=== PATIENT | female | born 1985 | race Caucasian/White ===

== ENCOUNTER → 2018-07-31 | Outpatient (CLI) | payer OTHER | LOC: BMCIMAGING 13:56 | PROVIDERS: ATTEND Internal Medicine | DX: J98.09 Other diseases of bronchus, not elsewhere classified (principal); Z87.01 Personal history of pneumonia (recurrent) ==

== ENCOUNTER 2018-11-24 19:51 | Inpatient (IN) | payer SELFPAY ==
[2018-11-24] MEDS ORDERED: NS 1,000 ML IV ONE ×2 (20:17→22:01)
[2018-11-24] MEDS ORDERED: ONDANSETRON 4 MG/2 ML VIAL IVP ONE (20:49)
[2018-11-24] MEDS ORDERED: KETOROLAC 30 MG/1 ML SDV IVP ONE (20:49)
[2018-11-24] MEDS ORDERED: FAMOTIDINE 20 MG/NACL 50 ML IV ONE (20:49)
[2018-11-24 20:54] LABS: PLATELET COUNT 58 10^3/uL (150-400)
--- NOTE | 2018-11-24 20:54 | EDPHY ---
General Time Seen by Provider: 11/24/18 20:36 Narrative: CLINICAL IMPRESSION: Acute cystitis, hematuria, pancreatitis, dehydration, hypoxia ASSESSMENT/PLAN: 33-year-old alcoholic female presents to the emergency department for 1 week of nausea, vomiting, diarrhea, dysuria, generalized weakness, and shortness of breath. Patient was reportedly treated for pneumonia over a month ago with Levaquin, reports having at clear chest x-ray on follow-up but continues to have some shortness of breath. No complaints of chest pain. Patient is a daily drinker, last drink was at 12:30 p.m. Today. She smells of alcohol. She is also complaining of generalized lower abdominal cramping associated with dysuria and mild left flank pain and on lab evaluation appears to have acute cystitis with possible pyelonephritis. She also reports fevers at home. She does appear dehydrated but does not appear toxic. She arrives tachycardic but heart rate improved to 104 after 2 L of fluid. Urine culture ordered. Chest x- ray suggestive of possible bibasilar infiltrate versus atelectasis. Ceftriaxone initiated in the ED. Patient is requesting Librium, I have discussed with the hospitalist service who will put her on [facility] protocol. I discussed with Dr. Albertina Anton who will accept patient for admission. DIFFERENTIAL DX: Abdominal pain includes but not limited to urinary tract infection, pyelonephritis, infection, ectopic , salpingitis, TOA, ovarian torsion, ovarian cyst, endometriosis, uterine fibroids, acute appendicitis, pancreatitis, acute diverticulitis, small-bowel obstruction, constipation ED PROCEDURES: See lab and/or imaging results below ED COURSE: Patient updated on lab results, chest x-ray findings and urine studies. When patient's father steps other room she admits that she drinks daily, last drink was at 12:30 p.m. Today, admits that she has had a history of alcohol withdrawal seizures. Is requesting Librium. Denies chest pain but states that she has had some shortness of breath. Admits to burning with urination and radiating pain into the left flank. Also reports history of thrombocytopenia. I explained the patient that due to her hypoxia, chest x-ray findings, pancreatitis, dehydration, and UTI with probable early pyelonephritis I have recommended admission and she agrees to this. Discussed with Dr. Albertina Anton who will admit this patient to the floor. CHIEF COMPLAINT: Abdominal pain, nausea, vomiting, diarrhea, shortness of breath HPI: 33-year-old female presents to the emergency department with multiple complaints including generalized abdominal pain, nausea, vomiting, diarrhea x1 week. Patient also reports a month ago she was diagnosed with pneumonia, treated with Levaquin, reportedly had a repeat chest x-ray following treatment and was told it cleared. She has been taking albuterol as needed. She continues to have some shortness of breath. Original diagnosis was in [place] where she lives. Patient apparently told triage ED RN that she has a history of alcohol abuse, last drink was at 12:30 p.m. Today. Patient is not providing this history to me and I believe this is because her father is at bedside and she does not wish for him to know. She reports no blood in her stool. She does report some burning with urination and blood in her urine. She reported 1 fever yesterday. No travel outside the [place] Recently. Last antibiotic was over a month ago. No history of diverticulitis, Crohn's, ulcerative colitis. She reported to ED RN that she has withdrawal seizures and has done well with Librium in the past. She has not taken anything today for her symptoms. PAST MEDICAL HISTORY: History of alcohol abuse See nurse/triage notes for additional history if applicable Pertinent Past Surgical History: None reported Family History: Noncontributory Social History: Drinks alcohol, lives in [place] REVIEW OF SYSTEMS: All other systems negative Constitutional: Positive for isolated fever today, no chills, positive for appetite change.] Eyes: No discharge, vision change ENT: No sore throat, congestion, ear pain. Cardiovascular: No chest pain, no palpitations. Respiratory: No cough, positive for intermittent shortness of breath. Gastrointestinal: Positive for abdominal pain, nausea, vomiting, diarrhea.] Genitourinary: Positive for hematuria, positive for dysuria, denies flank pain , pelvic pain Musculoskeletal: No back pain, joint swelling, joint pain, myalgias. Skin: No rashes, color change. Neurological: No headache, dizziness, weakness. PHYSICAL EXAM: General Appearance: Alert, oriented, appropriate, cooperative, NAD, well hydrated, non-toxic appearing, tachycardic, smells of alcohol, no hypoxia. HEENT:Oropharynx clear is no erythema or exudates, no tonsillar hypertrophy or asymmetry. Dentition without abnormality.] Eyes: PERRLA, no acute vision change, nystagmus, swelling, discharge, pain or photosensitivity. Conjunctiva pink, no pallor or injection Neck: Supple, nontender, no lymphadenopathy, no midline pain, FROM, no meningismus. Respiratory: There are no retractions, lungs are clear to auscultation. Cardiac: Regular rate and rhythm, no murmurs or gallops. Gastrointestinal: Abdomen is soft, generally tender throughout more so to left lower quadrant, bowel sounds normal, no masses/hernia, no rigidity, guarding or focal peritoneal findings. Neurological: [ Alert and oriented x 3 Skin: Warm, dry, no rashes, no nodules on palpation. Musculoskeletal: Extremities are symmetrical, full range of motion, no tenderness, deformity, swelling, or erythema. Psychiatric: Patient is oriented X 3, there is no agitation. MEDICAL DECISION MAKING: Patient was seen independently. Secondary supervising physician at time of evaluation was Dr. Pelletier . Diagnosis: Urinary tract infection, possible early pyelonephritis, pancreatitis , dehydration, hypoxia. New, requires workup Summary: See Assessment and Plan for summary of ED visit Clinical lab tests: ordered / reviewed. Independent visualization of images, tracing, or specimens: Yes / No. Decision to obtain medical records or history from someone other than the patient: No Review / Summarize previous medical records: No Discussed patient with another provider: Dr. Pelletier, Dr. Antonio Patient Progress: Stable for admission. - Diagnostics Imaging Results: Imaging Impressions Chest X-Ray 11/24/18 20:50 Impression: Small bilateral pleural effusions with indistinct basilar opacities that could be related to atelectasis, aspiration, and/or pneumonia. - History Smoking Status: Current some day smoker - Objective Vital Signs: Initial Vital Signs Temperature (C) 36.6 C 11/24/18 19:53 Heart Rate 120 H 11/24/18 19:53 Respiratory Rate 18 11/24/18 19:53 Blood Pressure 121/81 H 11/24/18 19:53 O2 Sat (%) 92 11/24/18 19:53 O2 Delivery Mode Room Air Allergies/Adverse Reactions: No Known Allergies Allergy (Unverified 11/24/18 19:58) Laboratory Results: Laboratory Results 11/24/18 20:14 11/24/18 20:14 11/24/18 11/24/18 11/24/18 21:43 21:43 20:14 WBC RBC Hgb Hct MCV MCH MCHC RDW Plt Count MPV Neut % (Auto) Lymph % (Auto) [place] % (Auto) Eos % (Auto) Baso % (Auto) Nucleat RBC Rel Count Absolute Neuts (auto) Absolute Lymphs (auto) Absolute Monos (auto) Absolute Eos (auto) Absolute Basos (auto) Absolute Nucleated RBC Immature Gran % Immature Gran # Sodium Potassium Chloride Carbon Dioxide Anion Gap BUN Creatinine Estimated GFR Glucose Calcium Total Bilirubin 4.0 mg/dL H mg/dL (0.1-1.4) Conjugated Bilirubin 3.2 mg/dL H mg/dL (0.0-0.5) Unconjugated Bilirubin 0.8 mg/dL mg/dL (0.0-1.1) AST 546 IU/L H IU/L (14-46) ALT 108 IU/L H IU/L (9-52) Alkaline Phosphatase 246 IU/L H IU/L (38-126) Total Protein 6.1 g/dL L g/dL (6.3-8.2) Albumin 3.3 g/dL L g/dL (3.5-5.0) Lipase Urine Color LISA Urine Appearance HAZY Urine pH 6.0 (5.0-7.5) Ur Specific [place] 1.014 (1.002-1.030) Urine Protein 2+ H (NEGATIVE) Urine Ketones NEGATIVE (NEGATIVE) Urine Blood 3+ H (NEGATIVE) Urine Nitrate POSITIVE H (NEGATIVE) Urine Bilirubin POSITIVE H (NEGATIVE) Urine Urobilinogen 4.0 EU H EU (0.2-1.0) Ur Leukocyte Esterase 1+ H (NEGATIVE) Urine RBC 50-182 /hpf H /hpf (0-3) Urine WBC 25-50 /hpf H /hpf (0-3) Ur Epithelial Cells 2+ /lpf H /lpf (NONE-1+) Urine Bacteria 4+ /hpf H /hpf (NONE SEEN) Hyaline Casts 5-15 /lpf /lpf (0-1) Urine Mucus TRACE /lpf /lpf (NONE-1+) Urine Glucose NEGATIVE (NEGATIVE) Urine Test NEGATIVE 11/24/18 11/24/18 11/24/18 20:14 20:14 20:14 WBC 3.76 10^3/uL L 10^3/uL (3.80-9.50) RBC 4.09 10^6/uL L 10^6/uL (4.18-5.33) Hgb 14.5 g/dL g/dL (12.6-16.3) Hct 41.2 % % (38.0-47.0) MCV 100.7 fL H fL (81.5-99.8) MCH 35.5 pg H pg (27.9-34.1) MCHC 35.2 g/dL g/dL (32.4-36.7) RDW 16.6 % H % (11.5-15.2) Plt Count 58 10^3/uL L 10^3/uL (150-400) MPV 12.9 fL H fL (8.7-11.7) Neut % (Auto) 57.3 % % (39.3-74.2) Lymph % (Auto) 26.3 % % (15.0-45.0) [place] % (Auto) 14.6 % H % (4.5-13.0) Eos % (Auto) 0.0 % L % (0.6-7.6) Baso % (Auto) 1.3 % % (0.3-1.7) Nucleat RBC Rel Count 1.3 % H % (0.0-0.2) Absolute Neuts (auto) 2.15 10^3/uL 10^3/uL (1.70-6.50) Absolute Lymphs (auto) 0.99 10^3/uL L 10^3/uL (1.00-3.00) Absolute Monos (auto) 0.55 10^3/uL 10^3/uL (0.30-0.80) Absolute Eos (auto) 0.00 10^3/uL L 10^3/uL (0.03-0.40) Absolute Basos (auto) 0.05 10^3/uL 10^3/uL (0.02-0.10) Absolute Nucleated RBC 0.05 10^3/uL H 10^3/uL (0-0.01) Immature Gran % 0.5 % % (0.0-1.1) Immature Gran # 0.02 10^3/uL 10^3/uL (0.00-0.10) Sodium 134 mEq/L L mEq/L (135-145) Potassium 3.7 mEq/L mEq/L (3.5-5.2) Chloride 92 mEq/L L mEq/L (97-110) Carbon Dioxide 25 mEq/l mEq/l (22-31) Anion Gap 17 mEq/L H mEq/L (6-14) BUN 31 mg/dL H mg/dL (7-23) Creatinine 0.6 mg/dL mg/dL (0.6-1.0) Estimated GFR > 60 Glucose 113 mg/dL H mg/dL (70-100) Calcium 7.3 mg/dL L mg/dL (8.5-10.4) Total Bilirubin Conjugated Bilirubin Unconjugated Bilirubin AST ALT Alkaline Phosphatase Total Protein Albumin Lipase 5213 IU/L H IU/L (23-300) Urine Color Urine Appearance Urine pH Ur Specific [place] Urine Protein Urine Ketones Urine Blood Urine Nitrate Urine Bilirubin Urine Urobilinogen Ur Leukocyte Esterase Urine RBC Urine WBC Ur Epithelial Cells Urine Bacteria Hyaline Casts Urine Mucus Urine Glucose Urine Test Medications Given: Discontinued Medications Sodium Chloride (Ns) 1,000 mls @ 0 mls/hr IV EDNOW ONE; Wide Open PRN Reason: Protocol Stop: 11/24/18 20:18 Last Admin: 11/24/18 20:22 Dose: 1,000 mls Famotidine/Sodium Chloride (Pepcid 20 Mg (Premix)) 50 mls @ 200 mls/hr IV EDNOW ONE Stop: 11/24/18 21:03 Last Admin: 11/24/18 20:59 Dose: 50 mls Sodium Chloride (Ns) 1,000 mls @ 0 mls/hr IV EDNOW ONE; Wide Open PRN Reason: Protocol Stop: 11/24/18 22:02 Last Admin: 11/24/18 22:18 Dose: 1,000 mls Ceftriaxone Sodium/Dextrose (Rocephin 1 Gm (Premix)) 50 mls @ 100 mls/hr IV EDNOW ONE PRN Reason: Protocol Stop: 11/24/18 22:48 Last Admin: 11/24/18 22:26 Dose: 50 mls Ketorolac Tromethamine (Toradol) 15 mg IVP EDNOW ONE Stop: 11/24/18 20:50 Last Admin: 11/24/18 20:59 Dose: 15 mg Ondansetron HCl (Zofran) 4 mg IVP EDNOW ONE Stop: 11/24/18 20:50 Last Admin: 11/24/18 20:59 Dose: 4 mg Departure - Departure Disposition: [facility] Inpatient Acute Clinical Impression: Hypoxia Acute cystitis Qualifiers: Hematuria presence: with hematuria Qualified Code(s): N30.01 - Acute cystitis with hematuria Pancreatitis Qualifiers: Chronicity: acute Pancreatitis type: alcohol induced Acute pancreatitis complication: unspecified Qualified Code(s): K85.20 - Alcohol induced acute pancreatitis without necrosis or infection Condition: Fair
[2018-11-24] MEDS ORDERED: ACETAMINOPHEN 325 MG TAB PO PRN (22:26)
[2018-11-24] MEDS ORDERED: ONDANSETRON DISINTEGRATING 4 MG TAB PO PRN (22:26)
[2018-11-24] MEDS ORDERED: FLUMAZENIL 0.5 MG/5 ML MDV IVP PRN (22:29)
--- NOTE | 2018-11-24 23:15 | PDGENHP ---
History and Physical - Chief Complaint Abdominal pain, dysuria - History of Present Illness 33 yo F w/ hx of ETOH abuse presents with abdominal pain and dysuria. The patient started feeling poorly about 2 weeks ago, when she noted abdominal pain and vomiting after a meal. The abdominal discomfort and nausea has continued since that time, but she is tolerating clears at this time. Then, over the course of the last week, she also developed dysuria, subjective fevers, and eventually dizziness when standing. She was brought to the ED from [place] as a result. In the ED her work-up is suggestive of pancreatitis and UTI. She does admit to drinking 6+ drinks almost daily. She has several prior bouts of alcohol withdrawal including alcohol withdrawal seizures. The patient would not like the extent of her drinking shared with other family members at this time. Case discussed with ED BRIGID Dyson; records reviewed and summarized above. History Information - Allergies/Home Medication List Allergies/Adverse Reactions: No Known Allergies Allergy (Unverified 11/24/18 19:58) I have personally reviewed and updated: family history, medical history - Past Medical History Additional medical history: ETOH use d/o - Surgical History Reports: no pertinent surgical hx - Family History Additional family history: Father w/ alcoholism - Social History Smoking Status: Current some day smoker Review of Systems Review of Systems: ROS: 10pt was reviewed & negative except for what was stated in HPI & below Physical Exam Physical Exam: Temp Pulse Resp BP Pulse Ox 36.9 C 103 H 16 120/91 H 94 11/24/18 22:27 11/24/18 22:27 11/24/18 22:27 11/24/18 22:27 11/24/18 22:27 Constitutional: appears nourished, uncomfortable Eyes: PERRL, EOMI Ears, Nose, Mouth, Throat: moist mucous membranes, no oral mucosal ulcers Cardiovascular: no murmur, rub, or gallop, tachycardia Respiratory: no respiratory distress, clear to auscultation Gastrointestinal: normoactive bowel sounds, tenderness (Diffuse), No guarding, No rebound, No distension Skin: warm, normal color Musculoskeletal: full muscle strength, no muscle tenderness Neurologic: AAOx3, CN II-XII Intact, other (Mild, fine UE tremor) Psychiatric: interacting appropriately, not anxious Lab Data & Imaging Review 11/24/18 20:14 11/24/18 20:14 WBC 3.76 10^3/uL (3.80-9.50) L 11/24/18 20:14 RBC 4.09 10^6/uL (4.18-5.33) L 11/24/18 20:14 Hgb 14.5 g/dL (12.6-16.3) 11/24/18 20:14 Hct 41.2 % (38.0-47.0) 11/24/18 20:14 MCV 100.7 fL (81.5-99.8) H 11/24/18 20:14 MCH 35.5 pg (27.9-34.1) H 11/24/18 20:14 MCHC 35.2 g/dL (32.4-36.7) 11/24/18 20:14 RDW 16.6 % (11.5-15.2) H 11/24/18 20:14 Plt Count 58 10^3/uL (150-400) L 11/24/18 20:14 MPV 12.9 fL (8.7-11.7) H 11/24/18 20:14 Neut % (Auto) 57.3 % (39.3-74.2) 11/24/18 20:14 Lymph % (Auto) 26.3 % (15.0-45.0) 11/24/18 20:14 [place] % (Auto) 14.6 % (4.5-13.0) H 11/24/18 20:14 Eos % (Auto) 0.0 % (0.6-7.6) L 11/24/18 20:14 Baso % (Auto) 1.3 % (0.3-1.7) 11/24/18 20:14 Nucleat RBC Rel Count 1.3 % (0.0-0.2) H 11/24/18 20:14 Absolute Neuts (auto) 2.15 10^3/uL (1.70-6.50) 11/24/18 20:14 Absolute Lymphs (auto) 0.99 10^3/uL (1.00-3.00) L 11/24/18 20:14 Absolute Monos (auto) 0.55 10^3/uL (0.30-0.80) 11/24/18 20:14 Absolute Eos (auto) 0.00 10^3/uL (0.03-0.40) L 11/24/18 20:14 Absolute Basos (auto) 0.05 10^3/uL (0.02-0.10) 11/24/18 20:14 Absolute Nucleated RBC 0.05 10^3/uL (0-0.01) H 11/24/18 20:14 Immature Gran % 0.5 % (0.0-1.1) 11/24/18 20:14 Immature Gran # 0.02 10^3/uL (0.00-0.10) 11/24/18 20:14 Sodium 134 mEq/L (135-145) L 11/24/18 20:14 Potassium 3.7 mEq/L (3.5-5.2) 11/24/18 20:14 Chloride 92 mEq/L (97-110) L 11/24/18 20:14 Carbon Dioxide 25 mEq/l (22-31) 11/24/18 20:14 Anion Gap 17 mEq/L (6-14) H 11/24/18 20:14 BUN 31 mg/dL (7-23) H 11/24/18 20:14 Creatinine 0.6 mg/dL (0.6-1.0) 11/24/18 20:14 Estimated GFR > 60 11/24/18 20:14 Glucose 113 mg/dL (70-100) H 11/24/18 20:14 Calcium 7.3 mg/dL (8.5-10.4) L 11/24/18 20:14 Total Bilirubin 4.0 mg/dL (0.1-1.4) H 11/24/18 20:14 Conjugated Bilirubin 3.2 mg/dL (0.0-0.5) H 11/24/18 20:14 Unconjugated Bilirubin 0.8 mg/dL (0.0-1.1) 11/24/18 20:14 AST 546 IU/L (14-46) H 11/24/18 20:14 ALT 108 IU/L (9-52) H 11/24/18 20:14 Alkaline Phosphatase 246 IU/L (38-126) H 11/24/18 20:14 Total Protein 6.1 g/dL (6.3-8.2) L 11/24/18 20:14 Albumin 3.3 g/dL (3.5-5.0) L 11/24/18 20:14 Lipase 5213 IU/L (23-300) H 11/24/18 20:14 Urine Color LISA 11/24/18 21:43 Urine Appearance HAZY 11/24/18 21:43 Urine pH 6.0 (5.0-7.5) 11/24/18 21:43 Ur Specific [place] 1.014 (1.002-1.030) 11/24/18 21:43 Urine Protein 2+ (NEGATIVE) H 11/24/18 21:43 Urine Ketones NEGATIVE (NEGATIVE) 11/24/18 21:43 Urine Blood 3+ (NEGATIVE) H 11/24/18 21:43 Urine Nitrate POSITIVE (NEGATIVE) H 11/24/18 21:43 Urine Bilirubin POSITIVE (NEGATIVE) H 11/24/18 21:43 Urine Urobilinogen 4.0 EU (0.2-1.0) H 11/24/18 21:43 Ur Leukocyte Esterase 1+ (NEGATIVE) H 11/24/18 21:43 Urine RBC 50-182 /hpf (0-3) H 11/24/18 21:43 Urine WBC 25-50 /hpf (0-3) H 11/24/18 21:43 Ur Epithelial Cells 2+ /lpf (NONE-1+) H 11/24/18 21:43 Urine Bacteria 4+ /hpf (NONE SEEN) H 11/24/18 21:43 Hyaline Casts 5-15 /lpf (0-1) 11/24/18 21:43 Urine Mucus TRACE /lpf (NONE-1+) 11/24/18 21:43 Urine Glucose NEGATIVE (NEGATIVE) 11/24/18 21:43 Urine Test NEGATIVE 11/24/18 21:43 Imaging Review: Imaging Impressions Chest X-Ray 11/24/18 20:50 Impression: Small bilateral pleural effusions with indistinct basilar opacities that could be related to atelectasis, aspiration, and/or pneumonia. Assessment & Plan Assessment: 33 yo F w/ ETOH use d/o presents w/ alcoholic pancreatitis and UTI. Plan: 1. Acute alcoholic pancreatitis - Patient presents with nearly 2 weeks of symptoms; lipase >5000 on admission. She drinks 6+ drinks almost daily. She has no prior hx of pancreatitis. - NPO, ADAT - mIVF - Pain control, anti-emetics PRN - Counselled ETOH cessation 2. UTI - 1 week of dysuria, mild L CVAT as well. No sepsis physiology at this time. UA w/ pyuria, hematuria, LE+, and nitrate+. - CTX 1 g qD - Urine culture pending 3. Abnormal LFTs - Elevated bilirubin, AST>>ALT suspicious for ETOH related liver disease. Noting thrombocytopenia, some concern for portal hypertension as well. Will check INR to calculate discriminant function. - RUQ U/S ordered for further evaluation - Monitor CMP 4. Thrombocytopenia - Possibly related to ETOH use. - Monitor CBC - Avoid anticoagulants, NSAIDs 5. Hypoxia - CXR (personally reviewed/interpreted) demonstrates small bilateral pleural effusions with indistinct basilar opacities that could be related to atelectasis, aspiration, and/or pneumonia. She has minimal respiratory symptoms at this time so this is likely a reflection of other active processes. - Continue O2 PRN - Incentive spirometry ordered 6. AGMA - Likely multifactorial from ketosis and lactic acidosis. 7. ETOH use d/o - Patient feels she is entering alcohol withdrawal. She has had 3 serious bouts in the past including seizures. She does not want the extent of her current drinking shared with family members. - CIWA protocol ordered - Daily MVI, folate, thiamine - Case management consult Diet - NPO, mIVF, ADAT Code - Full Ppx - SCDs Dispo - Admit under inpatient status
[2018-11-24] MEDS ORDERED: oxyCODONE IR 5 MG TAB PO PRN (23:20)
[2018-11-24] MEDS: LORazepam 2 MG/ML INJ IVP PRN (23:30)
[2018-11-24] MEDS: NS 1,000 ML IV SCH (23:49)
[2018-11-24] MEDS: POTASSIUM Cl (KCl) 100 ML IV SCH (23:50)
[2018-11-25] MEDS: POTASSIUM Cl (KCl) 100 ML IV SCH ×3 (00:19→02:09)
[2018-11-25 01:03] LABS: INR 1.16 (0.83-1.16); PROTIME(PATIENT) 14.3 SEC (12.0-15.0)
[2018-11-25 05:38] LABS: PLATELET COUNT 37 10^3/uL (150-400)
[2018-11-25] MEDS: LORazepam 2 MG/ML INJ IVP PRN ×5 (08:23→23:31)
[2018-11-25] MEDS: MULTIVITAMINS 1 EACH TAB PO SCH (08:24)
[2018-11-25] MEDS: THIAMINE HCL 100 MG TAB PO SCH (08:24)
[2018-11-25] MEDS: FOLIC ACID 1 MG TAB PO SCH (08:25)
[2018-11-25] MEDS: ONDANSETRON 4 MG/2 ML VIAL IVP PRN (08:32)
[2018-11-25] MEDS: NS 1,000 ML IV SCH ×3 (08:32→22:53)
--- NOTE | 2018-11-25 09:58 | PDMN ---
Medical Necessity Medical necessity: MCG M250 pancreatitis: 2 days: Admission is indicated for 1 or more of the following:-Acute pancreatitis[E] as indicated by 2 or more of the following:-Abdominal pain (eg, epigastric, left upper quadrant). -Serum amylase or serum lipase greater than 3 times the upper limit of normal, ( > 5000 ). pt will be NPO, IVF IV pain, IV antiemetics prn,. also with UTI, ab. LFT's, thrombocytopenia, hypoxia, -sm bilat. pleural effusions, AGMA, ETOH use, anticipate > 2 MN ongoing med nec care- further monitoring, eval and tx.
--- NOTE | 2018-11-25 13:54 | HOSPPROG ---
Hospitalist Progress Note Assessment/Plan: 33 yo F w alcohol withdrawal and abd pain alcohol withdrawal: ongoing. alert, ciwa 13 add scheduled librium abd pain: u/s abnormal HIDA in AM uti: ceftriaxone encephalopathy: 2/ abpve dispo: inpt proph: low risk Subjective: cxr reviewed/interp by me. CIWA high today Objective: Vital Signs Temp Pulse Resp BP Pulse Ox 37.1 C 99 20 118/78 91 L 11/25/18 11:34 11/25/18 12:59 11/25/18 13:05 11/25/18 13:05 11/25/18 13:05 Laboratory Results 11/25/18 04:13 11/25/18 04:13 11/24/18 11/25/18 11/26/18 05:59 05:59 05:59 Intake Total 2750 Balance 2750 PT 14.3 SEC (12.0-15.0) 11/25/18 00:30 INR 1.16 (0.83-1.16) 11/25/18 00:30 - Physical Exam Constitutional: no apparent distress, appears nourished Eyes: PERRL, anicteric sclera Ears, Nose, Mouth, Throat: moist mucous membranes, hearing normal Cardiovascular: regular rate and rhythym, no murmur, rub, or gallop Respiratory: no respiratory distress, no rales or rhonchi Gastrointestinal: normoactive bowel sounds, soft, non-tender abdomen Genitourinary: no bladder fullness, No le in urethra Skin: warm, normal color Musculoskeletal: full muscle strength ICD10 Worksheet Patient Problems: Problems Problem Status Onset Acute cystitis Acute Hypoxia Acute Pancreatitis Acute
[2018-11-25] MEDS ORDERED: ALBUTEROL 60 PUFFS/8 GM MDI IH PRN (13:56)
--- NOTE | 2018-11-25 15:21 | ASMTCAGE ---
CAGE Do you feel you ought to Answers: Yes cut down on your drinking or drug use? Do people annoy you by Answers: No criticizing your drinking or drug use? Do you feel guilty about Answers: Yes your drinking or drug use? 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 Date Signed: 11/25/2018 03:20 PM Electronically Signed By:Tiesha Morrow RN
--- NOTE | 2018-11-25 15:56 | ASMTCMCOM ---
CM Note CM Note Notes: Patient plan of care reviewed in am rounds. Met with patient this pm. Cage completed. Patient lives in [place] and was brought here by here father for treatment She is actively withdrawing from alcohol and reports she has been given resources on previous occasions. She is planning to relocate to [place] this month and CM has provided outpatient resources there on her discharge sheet. Plan: Likely independent with out patient support. Date Signed: 11/25/2018 03:55 PM Electronically Signed By:Tiesha Morrow RN
[2018-11-25] MEDS: oxyCODONE IR 5 MG TAB PO PRN ×2 (18:19→21:14)
[2018-11-26] MEDS: LORazepam 2 MG/ML INJ IVP PRN ×5 (02:35→23:50)
[2018-11-26] MEDS: THIAMINE HCL 100 MG TAB PO SCH (14:42)
[2018-11-26] MEDS: FOLIC ACID 1 MG TAB PO SCH (14:42)
[2018-11-26] MEDS: MULTIVITAMINS 1 EACH TAB PO SCH (14:42)
[2018-11-26] MEDS ORDERED: PANTOPRAZOLE SODIUM 40 MG TAB PO SCH (15:15)
--- NOTE | 2018-11-26 15:43 | PDCONSULT ---
Plastic Straightening Roll Operator Note: PAD#2 Assessment: Patient with history of ETOH use who has pancreatitis. No obstrucyion seen on Hida. MS injection did not reproduce pain. No gallstones seen. Ascitics noted and GB wall thickening noted. She reports what sounds like a normal ERCP in the past. Reports pending. She is quite sedated at this time but is arousable. She is hungry. Abdomen- normal BS, abdomen soft, Nontender. Bilirubin up ( stable) and it is mostly direct. Lipase has not yet been repeated. AST and ALT both slowly decreasing. Alk phos still elevated. Platelets low at 37 yesterday. Plan: Continue NPO Ambulate. Watch urine output as surrogate for hydration. Continue SCDS and IS. I feel that the process needs to be further sorted out. I suspect that it is most likely due to relative biliary obstruction due to pancreatitis due to alcohol Will get stat CBC and will follow labs with you.
--- NOTE | 2018-11-26 16:12 | ASMTCMCOM ---
CM Note CM Note Notes: Patient plan of care reviewed in am rounds, she continues to suffer withdrawal symptoms. Surgery consulted to see r/t chronic appearing gallbladder. Patient still plans to move to [facility] and has contacts on her discharge sheet for outpatient alcohol treatment. CM to follow. Plan: Dc independently when medically stable for discharge to home. Date Signed: 11/26/2018 04:11 PM Electronically Signed By:Tiesha Morrow RN
[2018-11-26] MEDS: NS 1,000 ML IV SCH (16:53)
[2018-11-26 16:55] LABS: PLATELET COUNT 42 10^3/uL (150-400)
--- NOTE | 2018-11-26 17:22 | HOSPPROG ---
Hospitalist Progress Note Assessment/Plan: 33 yo F w alcohol withdrawal and abd pain alcohol withdrawal: ongoing. improved today continue scheduled librium pancreatitis: mild by exam currently hungry suspect she can advance diet in AM abd pain: u/s abnormal HIDA w low GB ef probably warrants outpt cholecystectomy this is not driving current presentation uti: s/p 3 days ceftriaxone encephalopathy: 08/24 abpve dispo: inpt proph: low risk Subjective: case d/w dr marie. HIDA w low GB EF but no cholecystitis Objective: Vital Signs Temp Pulse Resp BP Pulse Ox 36.4 C 104 H 24 H 125/85 H 95 11/26/18 16:54 11/26/18 16:54 11/26/18 16:54 11/26/18 16:54 11/26/18 16:54 Laboratory Results 11/26/18 16:03 11/26/18 04:30 11/25/18 11/26/18 11/27/18 05:59 05:59 05:59 Intake Total 2750 4319 Balance 2750 4319 PT 14.3 SEC (12.0-15.0) 11/25/18 00:30 INR 1.16 (0.83-1.16) 11/25/18 00:30 - Physical Exam Constitutional: no apparent distress, appears nourished, other (less tremulous) Eyes: PERRL, anicteric sclera Ears, Nose, Mouth, Throat: moist mucous membranes, hearing normal Cardiovascular: regular rate and rhythym, no murmur, rub, or gallop Respiratory: no respiratory distress, no rales or rhonchi Gastrointestinal: No normoactive bowel sounds, No guarding, No rebound Genitourinary: No le in urethra Skin: warm, normal color Musculoskeletal: full muscle strength ICD10 Worksheet Patient Problems: Problems Problem Status Onset Acute cystitis Acute Hypoxia Acute Pancreatitis Acute
[2018-11-26] MEDS: ONDANSETRON 4 MG/2 ML VIAL IVP PRN (20:19)
[2018-11-26] MEDS: ACETAMINOPHEN 500 MG TAB PO SCH (22:51)
[2018-11-26] MEDS ORDERED: FUROSEMIDE 40 MG/4 ML VIAL IVP ONE (23:55)
[2018-11-26] MEDS ORDERED: FUROSEMIDE 20 MG/2 ML VIAL ONE (23:58)
[2018-11-27] MEDS ORDERED: ETOMIDATE 40 MG/20 ML INJ IVP ONE (00:20)
[2018-11-27] MEDS ORDERED: SUCCINYLCHOLINE CHLORIDE 200 MG/10 ML SYR IVP ONE (00:20)
[2018-11-27] MEDS ORDERED: IOPAMIDOL (ISOVUE 370) 100 ML BTL IV ONE (00:22)
--- NOTE | 2018-11-27 00:23 | EDPHY ---
Inpatient Procedure Narrative: I was asked to evaluate the patient in her room on the medical floor for acute respiratory distress. Patient was found to be in her room, awake, very anxious. BiPAP was in place. She is satting 62%. Dr. Grant, hospitalist, was at the bedside. Patient to be tachycardic as well. We explained to the patient that she had acute respiratory distress and require intubation. She consented the procedure. Patient had rales bilaterally on examination, tachypnea, severe distress. Procedure note: RSI intubation Indication for the procedure was acute respiratory distress. The patient was preoxygenated with 100% oxygen by face mask. The patient was sedated with etomidate, 20 mg and paralyzed with succinylcholine, 120 mg. The patient was orally endotracheally intubated under glide scope visualization with a 7.0 ETT. Tracheal intubation was confirmed with misting on the tube; breath sounds were auscultated equally bilaterally; appropriate color change with [place] CO2 detector, capnography waveform is appropriate, oxygen saturation after procedure is 72%. Chest X-ray shows ETT in good position. The procedure was performed by myself. Care was continued by Dr. Grant.
[2018-11-27] MEDS: PROPOFOL/EMULSION 100 ML IV SCH ×4 (00:28→17:09)
[2018-11-27] MEDS ORDERED: PROPOFOL/EMULSION 1,000 MG/100 ML BOTTLE IV ONE (00:28)
--- NOTE | 2018-11-27 00:51 | HOSPPROG ---
Hospitalist Progress Note Assessment/Plan: Hospitalist night float note Arrive to stat team to patient's bedside to find her tachypneic and anxious. Dr. Waite who is familiar with this patient from previous visit also arrive to bedside. She is sitting up awake. Pulse ox noted to be tachycardic to the 150s. O2 sat in the 70s on non- rebreather mask. RN reports that patient apparently got up to try to get inhaler from her bag without asking for assistance. She reported that she slid to the floor because she felt too weak and short of breath. She denies hitting her head. EKG showed sinus tachycardia in the 150s. Was a limited EKG due to artifact. Patient was increasingly cyanotic and mottled. BiPAP was placed without significant change in patient's O2 sat. She remain quite anxious and was hyperventilating. Stat chest x-ray revealed volume overload. 40 mg of Lasix was given. Patient continued to remain tachypneic, tachycardic and hypoxic despite BiPAP placement. She was very anxious and restless. This patient continued to decline ED provider Dr. Epps consulted for emergent intubation. This was discussed with the patient given her severe dyspnea and hypoxia. She is quite anxious. Patient's O2 sat did slowly improve into the 80s post intubation. She has taken emergently to CT for CTA of the chest given the sudden onset of her symptoms to rule out PE. Creatinine and negative urine test was noted. Patient will be transferred to the ICU Will plan to continue with diuresis. Await CT results Patient is critically ill with respiratory status slowly improving status post intubation. Patient still at increased risk for morbidity mortality. I discussed with patient's father Kamlesh and updated him on patient's current status. Critical care time 45 min. Objective: Vital Signs Temp Pulse Resp BP Pulse Ox 36.8 C 144 H 24 H 126/56 H 75 L 11/26/18 19:23 11/26/18 23:43 11/26/18 23:43 11/26/18 23:43 11/26/18 23:43 Laboratory Results 11/26/18 16:03 11/26/18 04:30 11/25/18 11/26/18 11/27/18 05:59 05:59 05:59 Intake Total 2750 4319 931.7 Balance 2750 4319 931.7 PT 14.3 SEC (12.0-15.0) 11/25/18 00:30 INR 1.16 (0.83-1.16) 11/25/18 00:30 ICD10 Worksheet Patient Problems: Problems Problem Status Onset Acute cystitis Acute Pancreatitis Acute Hypoxia Acute
[2018-11-27] MEDS: LORazepam 2 MG/ML INJ IVP SCH ×6 (02:42→22:15)
[2018-11-27] MEDS: ACETAMINOPHEN 500 MG TAB PO SCH (06:08)
--- NOTE | 2018-11-27 06:20 | CPEKG ---
Test Reason : OPEN Blood Pressure : / mmHG Vent. Rate : 156 BPM Atrial Rate : 156 BPM P-R Int : 094 ms QRS Dur : 086 ms QT Int : 339 ms P-R-T Axes : -19 155 125 degrees QTc Int : 546 ms Sinus tachycardia Probable anterolateral infarct, age indeterm Prolonged QT interval Confirmed by Isidro Chong ([id number]) on 11/27/2018 6:19:51 AM Referred By: Sanjiv Antonio Confirmed By:Isirdo Chong
[2018-11-27 06:58] LABS: PLATELET COUNT 49 10^3/uL (150-400)
[2018-11-27] MEDS: LORazepam 2 MG/ML INJ IVP PRN (07:35)
[2018-11-27] MEDS ORDERED: PROPOFOL/EMULSION 100 ML IV SCH (08:31)
[2018-11-27] MEDS ORDERED: fentaNYL/NACL 100 ML IV SCH (08:31)
[2018-11-27] MEDS: DEXMEDETOMIDINE HCL 400 MCG in NS 100 ML IV SCH ×2 (08:41→20:09)
[2018-11-27] MEDS ORDERED: FUROSEMIDE 20 MG/2 ML VIAL IVP SCH (09:00)
--- NOTE | 2018-11-27 09:01 | HOSPPROG ---
Hospitalist Progress Note Assessment/Plan: # acute resp failure - d/t bilat pulm infiltrates - currently intubated # acute encephalopathy - d/t underlying processes and sedation - cont propofol (for etOH w/d, acknowledging risk in pancreatitis), fentanyl , cyrus ativan, precedex # bilat pulm infiltrates, pleural effusions - suspect third spacing/pulm edema, cannot exclude pna - cont lasix - check pct - if elevated will consider treatment for aspiration pna # pancreatitis - cont NPO for now # chronic cholecystis - appreciate Dr Waite's assistance - no indication for cholecystectomy now # UTI, possible emphysematous cystitis - cont rocephin - check CT abd/pelvis given gas seen on AXR # etOH abuse and w/d - propofol, precedex, ativan as above Subjective: intubated overnight for resp failure Objective: Vital Signs Temp Pulse Resp BP Pulse Ox 37.7 C 121 H 26 H 117/85 H 96 11/27/18 07:51 11/27/18 08:45 11/27/18 08:45 11/27/18 08:45 11/27/18 08:45 Laboratory Results 11/27/18 06:10 11/27/18 06:10 11/26/18 11/27/18 11/28/18 05:59 05:59 05:59 Intake Total 4319 1015.7 Output Total 900 Balance 4319 115.7 PT 14.3 SEC (12.0-15.0) 11/25/18 00:30 INR 1.16 (0.83-1.16) 11/25/18 00:30 45 mins CC time in addition to time spent earlier in the night - Physical Exam Constitutional: uncomfortable Eyes: anicteric sclera Cardiovascular: regular rate and rhythym, no murmur, rub, or gallop Respiratory: inspiratory crackles, other (intubated) Gastrointestinal: distension (mild), other (grimaces and flinches with suprapubic tenderness) ICD10 Worksheet Patient Problems: Problems Problem Status Onset Acute cystitis Acute Pancreatitis Acute Hypoxia Acute
[2018-11-27] MEDS: NS 1,000 ML IV SCH (09:06)
[2018-11-27] MEDS: MULTIVITAMINS 1 EACH TAB PO SCH (09:07)
[2018-11-27] MEDS: FOLIC ACID 1 MG TAB PO SCH (09:08)
[2018-11-27] MEDS: THIAMINE HCL 100 MG TAB PO SCH (09:08)
[2018-11-27] MEDS: PANTOPRAZOLE SODIUM 40 MG VIAL IVP SCH (09:08)
[2018-11-27] MEDS ORDERED: IOPAMIDOL (ISOVUE-300) 100 ML BTL ONE (09:19)
--- NOTE | 2018-11-27 09:20 | PDCONSULT ---
Tankroom Tender Note: FRANK#3 11/27/2018 Assessment: Rapid response last PM for patient slumped at bedside with SAT on 100% non- rebreather of 76% - intubated and transfered to ICU. Thought, on intubation, to have aspirated. Known to have emphysematous cystitis, on antibiotics and pressors. Bili up, transaminases decreasing, lipase 5k to 1.1 K Pancreatitis with urinary infection complicated by probable aspiration and ETOH abuse. Reportedly she had an ERCP in past. Old records need to be located. Plan: As noted, no current indication for surgery but when stabilized ERCP should be considered.
[2018-11-27] MEDS ORDERED: NS 1,000 ML IV ONE (11:30)
[2018-11-27] MEDS: THIAMINE HCL 500 MG in NS 100 ML IV SCH (14:29)
[2018-11-27] MEDS ORDERED: ALTEPLASE 2 MG VIAL IVP PRN (15:35)
--- NOTE | 2018-11-27 16:06 | ECHO ---
[email or web address] [address] [address] Main: [phone] Echocardiography Examination Transthoracic Name: BHUPINDER GIFFORD MR#: [id number] Study Date: 11/27/2018 Study Time: 02:20 PM Date of : 1985 Age: 33 year(s) Height: 172.7 cm (68 in.) Weight: 54.43 kg (120 lb.) BSA: 1.64 m2 Gender: Female Examination: Echo Contrast: Image Quality: Adequate Rhythm: Heart Rate: 92 bpm BP: 89 mmHg/67 mmHg Indication: pulm edema Procedure Staff Referring Physician: Atm Servicer: Sonal Moore [facility] Reading Physician: Jake Ba MD Requesting Provider: Ordering Physician: Daniel Saavedra Indication: pulm edema Measurements Chambers AV/MV Label Value Normal Value Label Value Normal Value LVOT Vmax 0.63 m/s (0.7m/s - 1.1m/s) AV PGmax 2 mmHg LVOTd 2 cm (1.8cm - 2cm) AV Vmax 0.75 m/s LVDd, 2D 5.5 cm (3.9cm - 5.3cm) RERE (Vmax) 2.6 cm2 LVDs, 2D 4.8 cm (2.1cm - 4cm) MV E Vmax 0.59 m/s IVSd, 2D 0.7 cm (0.6cm - 1.1cm) MV A Vmax 0.18 m/s LVPWd, 2D 0.8 cm MV E/A 3.28 LVEF, BP 15 % (55% - 70%) MV E/E' lateral 7.3 LVEF, 2D 27 % (54% - 74%) MV E/E' septal 14.8 (0.6 - 2.6) RVDd, 2D 4.8 cm (1.9cm - 3.8cm) MV DT 165 ms TAPSE 1.1 cm MV E' septal 0.04 m/s LA Volume, BP 55 ml (22ml - 52ml) MV E' lateral 0.08 m/s LADs, 2D 2.9 cm (2.7cm - 3.8cm) MV E/E' mean 9.83 LAESV index, BP 33.5 ml/m2 MV E' mean 0.06 m/s RA Area 21.1 cm2 TV/PV Additional Vessels Label Value Normal Value Label Value Normal Value RA Pressure 15 mmHg AoAsc 2.9 cm RVSP 49 mmHg AoRoot, 2D 2.9 cm (1.4cm - 2.6cm) TR Pmax 34 mmHg TR Vmax 2.93 m/s Patient: BHUPINDER GIFFORD Study Date: 11/27/2018 Page 1 of 3 02:20 PM PV PGmax 1 mmHg PV Vmax, Caliper 0.57 m/s (0.6m/s - 0.9m/s) Conclusions (1) Left ventricular systolic ejection fraction was severe reduced (20%) - Moderate LV dilation - Global hypokinesis (2) Moderate to severe RV dilation with moderate reduction in function (3) Borderline LAE with moderate FLORENCE (4) MIld MR (5) Trileaflet aortic valve without sclerosis or insufficiency (6) Mild TR - RVSP was 49 mm Hg (7) Ascending aorta was normal in size (8) Small pericardial effusion (9) Large pleural effusion Findings Left Ventricle: Left ventricle is dilated. Severely reduced systolic left ventricular function. EF evaluated by EF (biplane Pugh's). The ejection fraction, measured by Simpsons method, is 15 %. EF range is estimated at 15 % - 20 %. Left ventricle wall thickness is normal. Global hypokinesis. Grade III Diastolic Dysfunction. Right Ventricle: Moderate to severely dilated right ventricle. Right ventricular systolic function is moderately reduced. Flattened interventricular septum consistent with right ventricular pressure and/or volume overload Left Atrium: The left atirum is borderline dilated. Right Atrium: The right atrium is moderately dilated. Mitral Valve: Mitral valve appears structurally normal. Mild mitral regurgitation. No mitral valve stenosis. Aortic Valve: The aortic valve is structurally normal and trileaflet. No aortic valve regurgitation. There is no aortic stenosis. Tricuspid Valve: Tricuspid valve leaflets are structurally normal. Mild tricuspid regurgitation. No tricuspid valve stenosis. Right Ventricular systolic pressure is measured at 49 mmHg. Pulmonary artery pressure moderately increased. Pulmonic Valve: Pulmonic leaflets are structurally normal. Trivial pulmonic valve regurgitation is present. Aorta: The aortic root size in 2D measures 2.9 cm. The aortic root exhibits normal size. The ascending aorta measures 2.9 cm. Ascending aorta is normal in size. Aorta Measurements AoRoot, 2D is 2.9 cm. IVC: The inferior vena cava is dilated. There is less than 50% respiratory excursion. Pericardium: A small pericardial effusion was identified. There is a pleural effusion present. Exam Details Procedure Ordered: Echo Procedure Status: Routine study Image Quality: Adequate Patient: BHUPINDER GIFFORD Study Date: 11/27/2018 Page 2 of 3 02:20 PM Facility Location: Cardiac Echo 1 (No Signature Object) Patient: BHUPINDER GIFFORD Study Date: 11/27/2018 Page 3 of 3 02:20 PM [id number]
[2018-11-27] MEDS: AMPICILLIN/SULBACTAM 3 GM in NS 100 ML IV SCH ×4 (16:21→23:26)
[2018-11-27] MEDS ORDERED: ALBUMIN 25% 50 ML IV ONE (16:46)
[2018-11-27] MEDS ORDERED: DOBUTamine/DEXTROSE 250 ML IV SCH (17:30)
[2018-11-27] MEDS ORDERED: DOBUTamine 500 MG in D5W 250 ML IV SCH (17:30)
--- NOTE | 2018-11-27 18:52 | GCON ---
[f rep st] CONSULTATION DATE OF CONSULTATION: 11/27/2018 REQUESTING PHYSICIAN: Dr. Charles Saavedra REASON FOR CONSULTATION: Emphysematous cystitis. HISTORY OF PRESENT ILLNESS: The patient is a 33-year-old female who was admitted on 11/24/2018 with abdominal pain and dysuria. The patient has a history of alcohol abuse with her admission history an d physical noting alcohol intake of greater than 6 drinks per day. She was seen in the emergency dep artment in [place] where she had findings suggestive of pancreatitis and urinary tract infection s. She did complain at the time of her presentation of dysuria, subjective fever and lightheadedness . Currently, history cannot be obtained from her as she is intubated. Presenting lipase at [facility] was [id number]. Findings were felt could be compatible with acute alcoholic pancreatitis and patient was managed conservatively. Based on the presence of dysuria, pyuria, hematuria and mild CVA tenderness, she was treated for a urinary tract infection with ceftriaxone 1 g daily. Urine cul ture obtained at the time of presentation subsequently has shown greater than 100,000 E coli. The is olate is humphrey susceptible. She has been noted to have persistent hyperbilirubinemia as well as elevat ions in her liver enzymes. HIDA scanning showed findings suggestive of chronic cholecystitis. A CT scan of the chest was performed on 11/27/2018, which showed bilateral diffuse alveolar lower opacitie s with considerations including pulmonary edema versus pneumonia. Early this a.m. a stat team was ca lled and the patient was found to be tachypneic with O2 sats in the 70s on a non-rebreather mask with significant tachycardia. Progressive decline despite Lasix and BiPAP occurred ultimately requiring emergent intubation. Question of aspiration was raised as potential etiology for patient's developme nt of respiratory distress. CT scan of the abdomen and pelvis was obtained earlier today and showed findings compatible with extensive emphysematous cystitis. There was also noted a ring-enhancing are a around the neck of the gallbladder measuring 2 cm x 1.6 cm. This is of unclear significance. Echo cardiogram was also performed and significant for an ejection fraction of 20%. The patient has been continuing to receive treatment with ceftriaxone since admission and metronidazole was added earlier today given concerns of aspiration. Given the above findings, I am now asked to assist in her ongoin g management. PAST MEDICAL HISTORY: Alcohol abuse. PAST SURGICAL HISTORY: None noted. CURRENT MEDICATIONS: Ceftriaxone 1 g IV daily, metronidazole 500 mg IV q.8 hours, Precedex drip, pro pofol drip, Protonix 40 mg IV daily, thiamin 500 mg IV daily. ALLERGIES: No known drug allergies. SOCIAL HISTORY: Significant for alcohol use and reported smoking. Currently cannot be obtained. To whelan history currently cannot be obtained, but noted to be positive for alcoholism in her admission h istory and physical. REVIEW OF SYSTEMS: Outside of that noted in the HPI, remainder of a 10-system review is unremarkable or unobtainable. PHYSICAL EXAMINATION: VITAL SIGNS: Temperature maximum 38.3, heart rate 87, respiratory rate 16, bl ood pressure 78/58, oxygen saturation 95% on 60% FiO2. GENERAL: Patient is intubated and sedated. HEENT: There is scleral icterus present. No conjunctival injection or petechiae. Endotracheal tube is present. No nasal discharge. NECK: Supple without palpable lymphadenopathy or thyromegaly. CH EST: Decreased breath sounds at both bases. The patient is mechanically ventilated. CARDIOVASCULAR : Regular rate and rhythm without murmurs, gallops, or rubs. ABDOMEN: Soft, nontender, nondistende d. No palpable organomegaly present. Bowel sounds hyperactive, hypoactive. MUSCULOSKELETAL: No cy anosis, clubbing, or edema. SKIN: There is some mottling over the knees and thighs bilaterally. Th ere is no coolness to palpation distally. No stigmata of endocarditis present. NEUROLOGIC: Patient is intubated and sedated. LYMPHATICS: No cervical or supraclavicular inguinal nodes palpable. LABORATORY DATA: White blood cell count 6.8, hematocrit 44.9, platelets 49, neutrophils 77%. Serum creatinine is 0.4, AST 320, ALT 85, bilirubin 6.5 (conjugated 5.6), alkaline phosphatase 261, albumin 2.8, lipase 1173, procalcitonin 0.8. Urinalysis at time of admission showed 50-182 red blood cells, 25-50 white blood cells, 4+ bacteria, 2+ epithelial cells; urine test was negative. Urine culture shows greater than 100,000 E coli which is susceptible to all tested agents. CT scan of the abdomen and pelvis, which is reviewed, shows findings consistent with emphysematous cystitis and rin g-enhancing area near gallbladder as previously outlined; mild findings of pancreatitis were present. Chest CT shows diffuse bibasilar consolidation. Echocardiogram showing EF 15-20 percent. Chest x- ray shows bilateral pleural effusions and left lower lobe consolidation. IMPRESSION: Severe sepsis due to emphysematous cystitis: Radiographic findings consistent with emph ysematous cystitis and urine culture showing growth of Escherichia coli which is typical for this dis ease entity. Escherichia coli is susceptible to all antimicrobial agents tested. It is unclear if t he patient also has superimposed aspiration pneumonia as potential contributor to the evolving sepsis . Blood pressure will require ongoing monitoring given potential for septic shock. Above findings a lso complicated by alcoholic pancreatitis, and possible chronic cholecystitis. The hypodense area no saul at the neck of the gallbladder is of unclear significance, but also potentially infectious in ronen ure. Overall constellation of findings is concerning for significant risk of mortality. RECOMMENDATIONS: 1. Unasyn 3 g IV q.6 hours, which will provide activity against E coli as well as aspiration pneumon ia. 2. Discontinue ceftriaxone and metronidazole (ceftriaxone can be associated with biliary sludging). 3. Continued supportive care and treatment of sepsis in ICU. 4. We will obtain blood cultures to assess for bacteremia given presence of fevers and hypotension. 5. Adjust antibiotics according to clinical course and microbiologic data. Thank you for this consultation. We will continue to follow the patient with you. /[id number]/MODL
--- NOTE | 2018-11-27 19:16 | PDCARCONS ---
Cardiology Consult Reason for Consult: Newly appreciated severely decreased LVEF Chief Complaint: Abdominal pain was voiced at the time of admission Requesting Physician: Hospitalist team/Pulm Crit Care History of Present Illness: Patient is a 33 y/o female with unremarkable past cardiovascular history (no CAD , HTN, HLP, or DM), who presented to [facility] on 11-24-17 after progressive issues noted with abdominal pains and burning with urination. At present, the patient is intubated in the ICU. Review of ER note and admission note assisted with vast majority of the patient's history. About one week prior to these symptoms being noted, the patient was treated with levoquin for suspected pneumonia. Long history of alcohol abuse with "seizures" reported. Greater than six drinks per day is reported. In the ER, labs and CXR pointed in the direction of both acute pancreatitis and UTI. LFTs with Alk phos to 246, AST to 546, and ALT was 108. Lipase was greater than 5000. No ECG in the ER. Abdominal ultrasound the following day with mild gall bladder wall thickening. HIDA scan without obstruction. The patient acutely decompensated last night and required intubation. CT of chest was performed to ensure no PE, and none was noted. Mild cardiomegaly was noted, as well as pleural effusions. Evidence was also suggestive of the aforementioned pancreatitis. Given the acute changes that were noted, the patient had echocardiography today, and severe reduction in left ventricular systolic ejection fraction was noted (20%) with global hypokinesis noted. Moderate LV dilation was noted as well as RV dysfunction. No significant valve pathology was noted. RVSP was elevated to about 50 mm Hg. With this testing, cardiology was consulted to provide recommendations. As stated above, the patient was intubated and sedated, and ROS was not obtainable (outside of that which has been documented from other's history). History Information - Allergies/Home Medication List Allergies/Adverse Reactions: No Known Allergies Allergy (Verified 11/25/18 09:22) Home Medications: Albuterol [Proventil Inhaler HFA (*)] 1 - 2 puffs IH Q4H PRN 11/25/18 [Last Taken Unknown] Vit27&Calcium/Iron/FA [ Rx 1 Tablet (RX)] 1 each PO DAILY 11/25 [Last Taken Unknown] Past Medical History: - Past Medical History no pertinent PMH - Surgical History Reports: no pertinent surgical hx - Family History Positive for: non-pertinent - Social History Smoking Status: Current some day smoker Alcohol Use: Heavy Drug Use: Other (uncertain on illicit use) Cardiac History - Cardiac History Past Cardiac History: OTHER (No prior cardiovascular history) Physical Exam Physical Exam: Temp Pulse Resp BP Pulse Ox 38.2 C 88 16 86/65 L 95 11/27/18 18:00 11/27/18 18:00 11/27/18 18:00 11/27/18 18:00 11/27/18 18:00 O2 (L/minute) 8 FIO2 (%) 60 Constitutional: other (Intubated and sedated) Eyes: other (sluggish and poorly responsive to light (patient intubated)) Ears, Nose, Mouth, Throat: moist mucous membranes Cardiovascular: regular rate and rhythym, no murmur, rub, or gallop, JVD, edema Peripheral Pulses: 2+: dorsalis-pedis (R), dorsalis-pedis (L) Respiratory: other (course breath sounds ) Skin: warm Musculoskeletal: other (sedated for ventilation) Neurologic: other (patient is intubated) Psychiatric: encephalopathic Lab and Imaging 11/27/18 06:10 11/27/18 06:10 WBC 6.76 10^3/uL (3.80-9.50) 11/27/18 06:10 RBC 4.17 10^6/uL (4.18-5.33) L 11/27/18 06:10 Hgb 14.8 g/dL (12.6-16.3) 11/27/18 06:10 Hct 44.9 % (38.0-47.0) 11/27/18 06:10 MCV 107.7 fL (81.5-99.8) H 11/27/18 06:10 MCH 35.5 pg (27.9-34.1) H 11/27/18 06:10 MCHC 33.0 g/dL (32.4-36.7) 11/27/18 06:10 RDW 16.4 % (11.5-15.2) H 11/27/18 06:10 Plt Count 49 10^3/uL (150-400) L 11/27/18 06:10 MPV 12.6 fL (8.7-11.7) H 11/27/18 06:10 Neut % (Auto) 77.4 % (39.3-74.2) H 11/27/18 06:10 Lymph % (Auto) 10.8 % (15.0-45.0) L 11/27/18 06:10 [place] % (Auto) 10.5 % (4.5-13.0) 11/27/18 06:10 Eos % (Auto) 0.3 % (0.6-7.6) L 11/27/18 06:10 Baso % (Auto) 0.3 % (0.3-1.7) 11/27/18 06:10 Nucleat RBC Rel Count 0.0 % (0.0-0.2) 11/27/18 06:10 Absolute Neuts (auto) 5.23 10^3/uL (1.70-6.50) 11/27/18 06:10 Absolute Lymphs (auto) 0.73 10^3/uL (1.00-3.00) L 11/27/18 06:10 Absolute Monos (auto) 0.71 10^3/uL (0.30-0.80) 11/27/18 06:10 Absolute Eos (auto) 0.02 10^3/uL (0.03-0.40) L 11/27/18 06:10 Absolute Basos (auto) 0.02 10^3/uL (0.02-0.10) 11/27/18 06:10 Absolute Nucleated RBC 0.00 10^3/uL (0-0.01) 11/27/18 06:10 Immature Gran % 0.7 % (0.0-1.1) 11/27/18 06:10 Immature Gran # 0.05 10^3/uL (0.00-0.10) 11/27/18 06:10 Platelet Estimate DECREASED (ADEQ) L 11/27/18 06:10 PT 14.3 SEC (12.0-15.0) 11/25/18 00:30 INR 1.16 (0.83-1.16) 11/25/18 00:30 Puncture Site RIGHT RADIAL 11/27/18 01:37 Patient Temperature 36.6 DEGREES 11/27/18 01:37 pCO2 39 mmHg (34-38) H 11/27/18 01:37 pO2 59 mmHg (65-75) L 11/27/18 01:37 Total CO2 22 mEq/L (23-27) L 11/27/18 01:37 ABG pH 7.35 (7.35-7.45) 11/27/18 01:37 ABG PO2/FiO2 Ratio 59 RATIO 11/27/18 01:37 ABG HCO3 21 mEq/L (22-26) L 11/27/18 01:37 ABG O2 Saturation 88 % (92-95) L 11/27/18 01:37 ABG Base Excess -4.3 mEq/L (-2.5-2.5) L 11/27/18 01:37 VBG Lactic Acid 1.7 mmol/L (0.7-2.1) 11/25/18 00:30 O2 Concentration % 100 % (0-100) 11/27/18 01:37 Respiration Rate 24 11/27/18 01:37 Set Respiration Rate 16 11/27/18 01:37 Assist Control YES 11/27/18 01:37 Tidal Volume 450 11/27/18 01:37 End Tidal CO2 29 11/27/18 01:37 PEEP 10 11/27/18 01:37 Sodium 133 mEq/L (135-145) L 11/27/18 06:10 Potassium 4.0 mEq/L (3.5-5.2) 11/27/18 06:10 Chloride 100 mEq/L (97-110) 11/27/18 06:10 Carbon Dioxide 22 mEq/l (22-31) 11/27/18 06:10 Anion Gap 11 mEq/L (6-14) 11/27/18 06:10 BUN 7 mg/dL (7-23) 11/27/18 06:10 Creatinine 0.4 mg/dL (0.6-1.0) L 11/27/18 06:10 Estimated GFR > 60 11/27/18 06:10 Glucose 86 mg/dL (70-100) 11/27/18 06:10 Calcium 6.9 mg/dL (8.5-10.4) L 11/27/18 06:10 Total Bilirubin 6.5 mg/dL (0.1-1.4) H 11/27/18 06:10 Conjugated Bilirubin 5.6 mg/dL (0.0-0.5) H 11/27/18 06:10 Unconjugated Bilirubin 0.9 mg/dL (0.0-1.1) 11/27/18 06:10 AST 320 IU/L (14-46) H 11/27/18 06:10 ALT 85 IU/L (9-52) H 11/27/18 06:10 Alkaline Phosphatase 261 IU/L (38-126) H 11/27/18 06:10 Troponin I 0.142 ng/mL (0.000-0.034) H 11/27/18 18:15 Total Protein 5.5 g/dL (6.3-8.2) L 11/27/18 06:10 Albumin 2.8 g/dL (3.5-5.0) L 11/27/18 06:10 Lipase 1173 IU/L (23-300) H 11/27/18 06:10 Procalcitonin 0.80 ng/mL (0.02-0.10) H 11/27/18 06:10 Urine Color LISA 11/24/18 21:43 Urine Appearance HAZY 11/24/18 21:43 Urine pH 6.0 (5.0-7.5) 11/24/18 21:43 Ur Specific [place] 1.014 (1.002-1.030) 11/24/18 21:43 Urine Protein 2+ (NEGATIVE) H 11/24/18 21:43 Urine Ketones NEGATIVE (NEGATIVE) 11/24/18 21:43 Urine Blood 3+ (NEGATIVE) H 11/24/18 21:43 Urine Nitrate POSITIVE (NEGATIVE) H 11/24/18 21:43 Urine Bilirubin POSITIVE (NEGATIVE) H 11/24/18 21:43 Urine Urobilinogen 4.0 EU (0.2-1.0) H 11/24/18 21:43 Ur Leukocyte Esterase 1+ (NEGATIVE) H 11/24/18 21:43 Urine RBC 50-182 /hpf (0-3) H 11/24/18 21:43 Urine WBC 25-50 /hpf (0-3) H 11/24/18 21:43 Ur Epithelial Cells 2+ /lpf (NONE-1+) H 11/24/18 21:43 Urine Bacteria 4+ /hpf (NONE SEEN) H 11/24/18 21:43 Hyaline Casts 5-15 /lpf (0-1) 11/24/18 21:43 Urine Mucus TRACE /lpf (NONE-1+) 11/24/18 21:43 Urine Glucose NEGATIVE (NEGATIVE) 11/24/18 21:43 Urine Test NEGATIVE 11/24/18 21:43 Visualized and Interpreted Chest x-ray results: Yes Chest X-ray Interpretation: infiltrate EKG Interpretation: Positive for: normal sinsus rhythm Telemetry: sinus rhythm Echocardiogram: LVEF of 20% with global hypokinesis A/P Assessment: Patient is a 33 y/o female with no prior cardiovascular history, but extensive, heavy alcohol consumption with admission for what initially appears to be pancreatitis and UTI. Decompensation was noted late last night, early this morning, and the patient was intubated (and remains so now). Echocardiography was obtained, and severe, global LV dysfunction is noted (20% ejection fraction) . No valve pathology was noted. RV was dilated and also poorly functioning with RVSP of 50 mm Hg. Hypotension is noted at present. LFT elevation continues to be noted. Lipase has trended down. Plan: (1) Low threshold to the addition of pressor support given the hypotension noted (2) Critical CAD is low on differential for the global hypokinesis that is noted - higher on the differential is ETOH use (heavy and frequent) - supportive measures while the acute phase passes (if possible) (3) Multisystem failure is noted - pulm, GI, card - with concomitant metabolic abnormalities (electrolytes) (4) Prognosis for this patient is poor Cardiology will continue to follow this patient Cessation of alcohol may allow for improvement in cardiac function, but the acute phase of withdrawal coupled with multisystem failure has poor predictability on being able to facilitate that goal.
[2018-11-28] MEDS: LORazepam 2 MG/ML INJ IVP SCH ×6 (02:16→23:33)
[2018-11-28 05:08] LABS: PLATELET COUNT 62 10^3/uL (150-400)
[2018-11-28] MEDS: AMPICILLIN/SULBACTAM 3 GM in NS 100 ML IV SCH ×3 (06:19→17:20)
[2018-11-28] MEDS: PROPOFOL/EMULSION 100 ML IV SCH ×2 (06:19→09:11)
[2018-11-28] MEDS: DEXMEDETOMIDINE HCL 400 MCG in NS 100 ML IV SCH ×2 (09:11→17:20)
[2018-11-28] MEDS: THIAMINE HCL 500 MG in NS 100 ML IV SCH (09:11)
[2018-11-28] MEDS: PANTOPRAZOLE SODIUM 40 MG VIAL IVP SCH (09:12)
--- NOTE | 2018-11-28 09:29 | PDCONSULT ---
Spanish Speaking Babysitter Note: 11/28/2018 Pancreatitis and biliary issues resolving. No indication for surgery at this time. Nothing further to add. I will sign off. Please re-consult if needed.
--- NOTE | 2018-11-28 11:32 | HOSPPROG ---
Hospitalist Progress Note Assessment/Plan: # acute resp failure - d/t bilat pulm infiltrates - currently intubated - cont ventilation support # acute sCHF, EF 20% with flash pulmonary edema - currently tolerating low dose precedex and sedation - cards involved, recheck EF at some point - lasix limited by hypotension # acute encephalopathy - d/t underlying processes and sedation - cont propofol (for etOH w/d, acknowledging risk in pancreatitis), fentanyl , cyrus ativan, precedex # pancreatitis - cont NPO for now # chronic cholecystis - appreciate Dr Waite's assistance - no indication for cholecystectomy now # UTI, possible emphysematous cystitis - unasyn # possible aspiration pna - unasyn # etOH abuse and w/d, history of seizures - propofol, precedex, ativan as above # colitis on CT # ring enhancing lesion in GB neck - unclear clinical significance # ? SMV-portal vein thrombosis - no AC at this point, could re-evaluate later Subjective: gets very agitated at times, requires ongoing sedation Objective: Vital Signs Temp Pulse Resp BP Pulse Ox 38.2 C 84 16 109/87 H 97 11/28/18 08:34 11/28/18 10:00 11/28/18 10:00 11/28/18 10:00 11/28/18 10:00 Laboratory Results 11/28/18 04:45 11/28/18 04:45 11/27/18 11/28/18 11/29/18 05:59 05:59 05:59 Intake Total 1015.7 1874 Output Total 900 1125 200 Balance 115.7 749 -200 PT 14.3 SEC (12.0-15.0) 11/25/18 00:30 INR 1.16 (0.83-1.16) 11/25/18 00:30 45 mins cc time managing cardiogenic shock, sepsis, resp failure and pancreatitis - Physical Exam Constitutional: other (intubated, sedated) Cardiovascular: regular rate and rhythym, no murmur, rub, or gallop, No systolic murmur Respiratory: no respiratory distress, no rales or rhonchi, clear to auscultation Gastrointestinal: normoactive bowel sounds, soft, non-tender abdomen ICD10 Worksheet Patient Problems: Problems Problem Status Onset Acute cystitis Acute Pancreatitis Acute Hypoxia Acute
--- NOTE | 2018-11-28 14:10 | PCMIDPN ---
Assessment/Plan: Assessment/Plan: * Severe sepsis associated with emphysematous cystitis due to E coli: Hypotension yesterday has resolved. Blood cultures are currently pending. Will continue Unasyn based on susceptibility profile of E coli. * Possible aspiration pneumonia: Covered by Unasyn as outlined above. * Fever: Febrile post intubation. May be associated aspiration pneumonia or cytokine release associated with aspiration/intubation/emphysematous cystitis. Blood cultures obtained with no growth to date. Continue to follow over time. Time spent, greater than 35 min, which greater than half was spent in education/ counseling/coordination care related to severe sepsis with emphysematous cystitis in aspiration pneumonia. Care coordinated with patient, family, hospitalist service, space and storage clerk, and included participation in ICU rounds. 11/28/18 14:08 Subjective: Patient intubated and sedated. Cardiology consultation and echocardiographic findings noted. Objective: Vital Signs Temp Pulse Resp BP Pulse Ox 37.7 C 85 16 106/84 H 95 11/28/18 12:00 11/28/18 14:00 11/28/18 14:00 11/28/18 14:00 11/28/18 14:00 Laboratory Results 11/28/18 04:45 11/28/18 04:45 11/27/18 11/28/18 11/29/18 05:59 05:59 05:59 Intake Total 1015.7 1874 Output Total 900 1125 200 Balance 115.7 749 -200 Unasyn # 2 Urine culture greater than 100,000 E coli Blood cultures x2 pending T-max 38.4 degrees - Physical Exam General Appearance: other (Intubated, sedated) EENT: scleral icterus, ET Tube Respiratory: coarse breath sounds Cardiac/Chest: regular rate, rhythm Extremities: No inflammation Abdomen: non-tender, No distended Skin: rash (Less mottled appearance to skin around knees and lower thighs), No embolic lesions - Line/s RUE PICC Lines: No drainage, No erythema ICD10 Worksheet Patient Problems: Problems Problem Status Onset Acute cystitis Acute Hypoxia Acute Pancreatitis Acute
--- NOTE | 2018-11-28 14:13 | PDCARPN ---
Cardiology Progress Note Chief Complaint: Patient remains intubated and sedated Assessment/Plan: Assessment: 11-28-18 Patient remains intubated and sedated. Parents were at bedside this morning. 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 Notable LFT and pancreatic enzyme elevations were noted (consistent with acute pancreatitis) . Urinary tract infection (patient's mother stated that the patient has had long standing issues with controlling this diagnosis) at the time of presentation. Chronic cholecystitis without acute involvement noted. As stated yesterday, there is multisystem involvement noted. Cardiology with recommendations for supportive measures - would attempt to get patient through the time frame of alcohol withdrawal given the severe reduction in systolic function noted by echocardiography. 11-27-18 Patient is a 33 y/o female with unremarkable past cardiovascular history (no CAD , HTN, HLP, or DM), who presented to [facility] on 11-24-17 after progressive issues noted with abdominal pains and burning with urination. At present, the patient is intubated in the ICU. Review of ER note and admission note assisted with vast majority of the patient's history. About one week prior to these symptoms being noted, the patient was treated with levoquin for suspected pneumonia. Long history of alcohol abuse with "seizures" reported. Greater than six drinks per day is reported. In the ER, labs and CXR pointed in the direction of both acute pancreatitis and UTI. LFTs with Alk phos to 246, AST to 546, and ALT was 108. Lipase was greater than 5000. No ECG in the ER. Abdominal ultrasound the following day with mild gall bladder wall thickening. HIDA scan without obstruction. The patient acutely decompensated last night and required intubation. CT of chest was performed to ensure no PE, and none was noted. Mild cardiomegaly was noted, as well as pleural effusions. Evidence was also suggestive of the aforementioned pancreatitis. Given the acute changes that were noted, the patient had echocardiography today, and severe reduction in left ventricular systolic ejection fraction was noted (20%) with global hypokinesis noted. Moderate LV dilation was noted as well as RV dysfunction. No significant valve pathology was noted. RVSP was elevated to about 50 mm Hg. With this testing, cardiology was consulted to provide recommendations. Plan: From a cardiovascular perspective, supportive measures to continue. There has been improvement in pancreatic enzymes (reduction in lipase). Cardiology will continue to follow this patient. After patient is extubated, and haemodynamics (hopefully) improve, would consider reassessment of LV function by limited echocardiography. Subjective: Intubated and sedated Objective: Vital Signs (8 Hrs) Temp Pulse Resp BP Pulse Ox 11/28/18 12:00 37.7 C 85 16 111/88 H 95 11/28/18 10:00 84 16 109/87 H 97 11/28/18 08:34 38.2 C 84 16 95 11/28/18 08:00 38.2 C 85 17 109/86 H 96 Intake/Output (24 Hrs) 11/27/18 11/28/18 11/29/18 05:59 05:59 05:59 Intake Total 1015.7 1874 Output Total 900 1125 200 Balance 115.7 749 -200 Intake: Oral (ml) 0 IV Infused (ml) 1015.7 1874 Albumin 25% 50 ml @ As 50 Directed IV ONCE ONE Rx#: [id number] Dexmedetomidine HCl 400 145 mcg In Ns 100 ml @ Per Protocol IV CONT TERESA Rx#: [id number] Ns 1,000 ml @ 150 mls/hr 931.7 1461 IV CONT TERESA Rx#: [id number] Propofol/Emulsion 100 ml 84 168 @ Titrate IV CONT TERESA Rx# :[id number] fentaNYL/NACL 100 ml @ 50 Per Protocol IV CONT TERESA Rx#:[id number] Output: Urine (ml) 900 925 Catheter 925 Toilet 900 OG Tube Output (ml) 200 200 Non-weighted Oral Stomach 200 200 Other: Weight 69 kg Number of Voids Toilet 2 Number of Stools Catheter 0 Incontinence 1 Toilet 1 Result Diagrams: 11/28/18 04:45 11/28/18 04:45 Cardiac Labs: Cardiac Lab Results (72 Hrs) 11/28/18 11/27/18 11/27/18 00:50 18:15 15:30 Troponin I 0.116 H 0.142 H 0.134 H Telemetry: Sinus rhythm - Physical Exam Constitutional: other (Intubated and sedated) Eyes: EOMI Ears, Nose, Mouth, Throat: moist mucous membranes Cardiovascular: regular rate and rhythm, no murmurs, no rubs, no gallops, jugular vein distention, pulses symmetric bilat Peripheral Pulses: 2+: dorsalis-pedis (R), dorsalis-pedis (L) Respiratory: other (course breath sounds) Gastrointestinal: other (hypoactive bowel sounds) Skin: warm Musculoskeletal: other (patient is intubated) Psychiatric: encephalopathic ICD10 Worksheet Patient Problems: Problems Problem Status Onset Acute cystitis Acute Hypoxia Acute Pancreatitis Acute
--- NOTE | 2018-11-28 15:54 | ASMTCMCOM ---
CM Note CM Note Notes: Met with patient's parents, Kamlesh and Jennifer and her brother Abhinav and his Rylee yesterday. Proxy was established as patient has been intubated. Patient's father, Kamlesh will serve as proxy until patient is able to speak for herself. The family members were all in agreement on this and state the patient does not have any close friends to consult. The family had questions about sending records to their physician in [place], [place]. A ELIZABETH was obtained and medical records was consulted. Patient's records have been faxed to Dr. Schreiber. There was discussion of some of the possibilities for custodial care for the patient. A family meeting was scheduled for tomorrow at 12:30. Patient's parents plan on staying here in [place] for the duration of the patient's illness and hospitlaization. They would like to take her back to [place] for rehab there when she is ready for discharge. They did say the patient is headstrong and has isolated herself due to her addiction issues so it has not been determined yet what the patient will cooperate with when she is medically stable. CM will follow. Date Signed: 11/28/2018 03:53 PM Electronically Signed By:Tiffany Reardon LCSW
--- NOTE | 2018-11-28 16:05 | ASMTCMCOM ---
CM Note CM Note Notes: A family meeting was held today for the family of Jacquelin. Please see Gissell Taylor's, (Client Success Specialist) notes. CM confirmed the medical records are being faxed to Dr. Prashant Schreiber today. In addition, the family's request for a neurology consult was addressed by the 's with the family. Patient is currently in critical condition and her cardiac issues are primary presently. The family stated they are still planning to try and get the patient back to [place] when she is medically ready for discharge. They do understand she may need some inpatient physical rehab prior to going for A and D rehab. The family was invited to request a family meeting when they need one. They understand the patient may have a lengthy hospitalization. CM will follow. Date Signed: 11/28/2018 04:05 PM Electronically Signed By:Tiffany Reardon LCSW
--- NOTE | 2018-11-28 16:25 | GCON ---
[f rep st] CONSULTATION PULMONARY/CRITICAL CARE CONSULTATION DATE OF CONSULTATION: 11/27/2018 REFERRING PHYSICIAN: Daniel Saavedra MD REASON FOR CONSULTATION: Evaluation and management of hypotension and respiratory failure. HISTORY: Ms. Adams is a 33-year-old woman, who was admitted to the [facility] 3 days ago with abdominal pain and dysuria. She apparently started feeling poorly about 2 weeks ago when she had abdominal pain and vomiting. This was followed by subjective fevers and dizziness. She was brought Cynthia to the Emergency Department, where she was felt to have pancreatitis and urinary tract infection. She was started on ceftriaxone 1 g daily. This morning, a STAT team was called because the patient had tachypnea with oxygen saturations in the 70s. She was given Lasix and BiPAP, but required emergent intubation. She has had hypotension this morning on the ventilator. She is currently sedated. PAST MEDICAL HISTORY: Alcoholism. She has apparently had alcohol withdrawal seizures in the past. MEDICATIONS: At the time of admission include albuterol p.r.n. medications currently include: 1. Ceftriaxone. 2. Metronidazole has been added. ALLERGIES: None. SOCIAL HISTORY: She currently smokes occasionally. Heavy daily alcohol use. FAMILY HISTORY: Positive for alcoholism. REVIEW OF SYSTEMS: Unobtainable. PHYSICAL EXAMINATION: GENERAL: The patient is intubated and sedated. VITAL SIGNS: Blood pressure is 115/88 with a heart rate of 115. Temperature is 37.7. Oxygen saturations are 97%. HEENT: Normocephalic and atraumatic. No icterus. NECK: No adenopathy. Trachea is midline. CHEST: Decreased breath sounds in both bases, with some basilar rales. CARDIAC: Regular tachycardia without murmur. ABDOMEN: Soft. Bowel sounds are hypoactive. EXTREMITIES: No clubbing, cyanosis, or edema. NEURO: The patient is sedated. She moves all extremities with reduced sedation, and when she becomes agitated. LABORATORY: White blood count is 3.5 with a hemoglobin of 12.9 and a platelet count of 37. Chemistry group is remarkable for sodium 133. An AST is 320, down from 546 at admission. Lipase is 1173, down from 5213 at admission. Procalcitonin is 0.8. An arterial blood gas shows a pH of 7.35 with a pO2 of 59 , a CO2 of 39, and a bicarbonate of 21 on 100% oxygen with AC at a rate of 16, patient rate of 24, tidal volume of 450, PEEP of 10. A urine culture demonstrates greater than 100,000 E coli, pansensitive. IMAGING: A chest x-ray shows moderate sized bilateral pleural effusions with basilar consolidation. There are some patchy alveolar opacities. Images reviewed by me. CT scan of the abdomen from November 27 demonstrates severe emphysematous cystitis with possible colitis as well as some pancreatitis and ring-enhance lesion of the gallbladder neck. Images reviewed by me. Echocardiogram demonstrates an ejection fraction of about 20% with global hypokinesis. ASSESSMENT: 1. Probable sepsis. The most likely source is a urinary tract infection with emphysematous cystitis. The patient is currently on ceftriaxone for that, which should be appropriate coverage. It is also possible the patient had aspiration pneumonia, but I think CAT scan is more suggestive of congestive heart failure due to reduced systolic function. 2. Respiratory failure. This is likely multifactorial, with possible sepsis as well as congestive heart failure. The patient has large pleural effusions and consolidation in the bases that is more likely due to acute respiratory distress syndrome and pulmonary edema than an acute pneumonia. 3. Congestive heart failure with reduced systolic ejection fraction. The severe hypokinesis is likely due to sepsis and/or alcohol. It will complicate management as the patient has significant tachycardia and is a risk for hypotension with attempts to diurese. 4. Hypertension. The patient's systolic blood pressure was in the 120s, but has fallen to the 70s. She may respond to dobutamine. Sedation could potentially worsen her hypotension. 5. History of alcoholism. The patient is at high risk for alcohol withdrawal. RECOMMENDATIONS: 1. Infectious Disease consultation. 2. Trial of starting dobutamine. 3. Continue mechanical ventilation. 4. Followup for signs of alcohol withdrawal. /[id number]/MODL and [id number]/[facility]
[2018-11-28] MEDS ORDERED: FUROSEMIDE 20 MG/2 ML VIAL IVP ONE (16:47)
--- NOTE | 2018-11-28 16:52 | PDINTPN ---
Cafeteria Team Leader Progress Note Assessment/Plan: Assessment: Sepsis: Likely due to E.Coli UTI with emphysematous cystitis. On Unasyn for humphrey- sensitive E. Coli. WBC normal, still febrile. BP OK, no pressors. Hypotension: Resolved. Likely due to LV dysfunction and sepsis. On no pressors. CHF: With EF 20%, global hypokinesis. Likely due to sepsis, possibly EtOH. Respiratory Failure: Hypoxemic. Due to sepsis and CHF, with extensive basilar- predominant consolidation and moderate-large effusions. Aspiration possible but less likely. Stable oxygenation on vent with 40% O2, PEEP 10.. EtOH abuse: History of moderately heavy daily use and prior withdrawal symptoms , including seizures. On Propofol currently. Abstinent at least since 11/24. Plan:Continue current sedation, Unasyn, mechanical ventilation, thiamine. Trial of low-dose lasix, increase as tolerated. ABG and CXR in AM. 11/28/18 16:53 11/28/18 16:58 Subjective: Intubated, sedated Objective: Vital Signs Temp Pulse Resp BP Pulse Ox 37.7 C 85 16 111/91 H 98 11/28/18 12:00 11/28/18 16:00 11/28/18 16:00 11/28/18 16:00 11/28/18 16:00 Laboratory Results 11/28/18 04:45 11/28/18 04:45 11/27/18 11/28/18 11/29/18 05:59 05:59 05:59 Intake Total 1015.7 1874 Output Total 900 1125 200 Balance 115.7 749 -200 PT 14.3 SEC (12.0-15.0) 11/25/18 00:30 INR 1.16 (0.83-1.16) 11/25/18 00:30 Laboratory Tests 11/28/18 05:00 pCO2 37 pO2 112 H Total CO2 22 L ABG pH 7.38 ABG HCO3 21 L O2 Concentration % 50 Respiration Rate 16 Assist Control YES Tidal Volume 450 PEEP 10 Physical Exam - Physical Exam General Appearance: No alert EENT: normal ENT inspection Neck: normal inspection Respiratory: lungs clear, normal breath sounds Cardiac/Chest: regular rate, rhythm, edema (1+) Abdomen: non-tender, No soft Skin: normal color, warm/dry Extremities: normal inspection Neuro/Psych: No alert ICD10 Worksheet Patient Problems: Problems Problem Status Onset Acute cystitis Acute Hypoxia Acute Pancreatitis Acute
[2018-11-29] MEDS: AMPICILLIN/SULBACTAM 3 GM in NS 100 ML IV SCH ×4 (00:36→17:19)
[2018-11-29] MEDS: DEXMEDETOMIDINE HCL 400 MCG in NS 100 ML IV SCH ×3 (02:37→23:56)
[2018-11-29] MEDS: LORazepam 2 MG/ML INJ IVP SCH ×6 (02:52→22:31)
[2018-11-29] MEDS ORDERED: PETROLAT,WHT/MIN OIL/SOD CHL 3.5 GM OPHT.OINT EACHEYE PRN (03:30)
[2018-11-29] MEDS ORDERED: ORAL BALANCE GEL TUBE PO PRN (03:30)
[2018-11-29] MEDS ORDERED: PROTOCOL POTASSIUM 1 DOSE MISC PRN (04:02)
[2018-11-29] MEDS ORDERED: PROTOCOL MAGNESIUM 1 DOSE IV PRN (04:02)
[2018-11-29] MEDS ORDERED: PROTOCOL K PHOSPHATE 1 DOSE IV PRN (04:02)
[2018-11-29] MEDS ORDERED: MAGNESIUM SULF 2 GM/WATER 50 ML IV ONE ×2 (04:05→11:59)
[2018-11-29] MEDS: POTASSIUM Cl (KCl) 50 ML IV SCH ×3 (04:52→08:27)
[2018-11-29] MEDS: THIAMINE HCL 500 MG in NS 100 ML IV SCH (09:15)
[2018-11-29] MEDS: PANTOPRAZOLE SODIUM 40 MG VIAL IVP SCH (09:15)
--- NOTE | 2018-11-29 09:32 | PDINTPN ---
Band Teacher Progress Note Assessment/Plan: Assessment: Sepsis: Likely due to E.Coli UTI with emphysematous cystitis. On Unasyn for humphrey- sensitive E. Coli. WBC normal, still febrile. BP OK, no pressors. Hypotension: Improved, but still low. Likely due to LV dysfunction and sepsis. On no pressors. CHF: With EF 20%, global hypokinesis. Likely due to sepsis, possibly EtOH. Respiratory Failure: Hypoxemic. Due to sepsis and CHF, with extensive basilar- predominant consolidation and moderate-large effusions. Aspiration possible but less likely. Stable oxygenation on vent with 40% O2, PEEP 10. EtOH abuse: History of moderately heavy daily use and prior withdrawal symptoms , including seizures. On Propofol currently. Abstinent at least since 11/24. Nutrition: None Plan:Continue current sedation, Unasyn, mechanical ventilation, thiamine. Increase Lasix, add albumin. Try to reduce sedation. Try starting tube feeds Follow blood pressure closely Follow-up chest x-ray. Start DVT prophylaxis D/W RN, RT, hospitalist, RT 35 min critical care time assessing respiratory status on ventilator, hypotension 11/29/18 09:39 Subjective: Intubated, sedated Objective: Vital Signs Temp Pulse Resp BP Pulse Ox 37.8 C 84 18 99/86 H 99 11/29/18 08:00 11/29/18 08:11 11/29/18 08:11 11/29/18 08:00 11/29/18 08:11 Laboratory Results 11/29/18 03:29 11/29/18 03:29 11/28/18 11/29/18 11/30/18 05:59 05:59 05:59 Intake Total 1874 1077 Output Total 1125 1725 Balance 749 -648 PT 14.3 SEC (12.0-15.0) 11/25/18 00:30 INR 1.16 (0.83-1.16) 11/25/18 00:30 Chest x-ray: Persistent CHF with basilar effusions. Images reviewed by me. Laboratory Tests 11/29/18 04:20 pCO2 28 L pO2 90 H Total CO2 20 L ABG pH 7.44 ABG HCO3 19 L O2 Concentration % 40 Respiration Rate 16 Tidal Volume 450 Physical Exam - Physical Exam General Appearance: no apparent distress, No alert EENT: normal ENT inspection Neck: normal inspection Respiratory: decreased breath sounds (Bases) Cardiac/Chest: regular rate, rhythm, edema (1+) Abdomen: normal bowel sounds, non-tender Skin: normal color, warm/dry Extremities: normal inspection Neuro/Psych: No alert ICD10 Worksheet Patient Problems: Problems Problem Status Onset Acute cystitis Acute Hypoxia Acute Pancreatitis Acute
[2018-11-29] MEDS: ALBUMIN 25% 100 ML IV SCH ×3 (09:58→22:31)
[2018-11-29] MEDS: FUROSEMIDE 20 MG/2 ML VIAL IVP SCH ×2 (09:59→17:17)
[2018-11-29] MEDS: ENOXAPARIN 30 MG/0.3 ML SYR SC SCH ×2 (09:59→22:31)
[2018-11-29] MEDS: PROPOFOL/EMULSION 100 ML IV SCH ×2 (10:18→18:45)
[2018-11-29] MEDS ORDERED: POTASSIUM Cl (KCl) 50 ML IV ONE ×2 (11:59→17:33)
[2018-11-29] MEDS ORDERED: ALBUMIN 25% 100 ML IV SCH (12:00)
--- NOTE | 2018-11-29 12:52 | HOSPPROG ---
Hospitalist Progress Note Assessment/Plan: #Sepsis -E-UTI, possible emphysematous cystitis -Long sensitive E-Coli -ID following -Cont Unasyn # acute resp failure - d/t bilat pulm infiltrates vs pulmonary edema - currently intubated - cont ventilation support per pulmonology - Diuretics/Albumin scheduled # possible aspiration pna - unasyn # acute sCHF, EF 20% with flash pulmonary edema - currently tolerating low dose precedex and sedation - cards involved, recheck EF in the future - lasix limited by hypotension. Now on Albumin and Lasix -CXR with edema, personally reviewed # Hypotension, likely multifactorial, sepsis, low EF # acute encephalopathy - d/t underlying processes and sedation - cont propofol (for etOH w/d, acknowledging risk in pancreatitis), fentanyl , cyrus ativan, precedex # pancreatitis - cont NPO for now. Start Tube Feeds today # chronic cholecystis - appreciate Dr Waite's assistance - no indication for cholecystectomy now # etOH abuse and w/d, history of seizures - propofol, precedex, ativan as above # colitis on CT # ring enhancing lesion in GB neck - unclear clinical significance # ? SMV-portal vein thrombosis - no AC at this point, could re-evaluate later #Hypomagnesemia, replaced this morning. Still low on recheck, will provide additional dose. FEN: start tube feeds today SCD's, Lovenox total critical care time is 35 mins in pt with sepsis and CHF exacerbation Subjective: intubated. still with soft bp. Objective: Vital Signs Temp Pulse Resp BP Pulse Ox 38 C 83 14 105/85 H 99 11/29/18 12:00 11/29/18 12:00 11/29/18 12:00 11/29/18 12:00 11/29/18 12:00 Laboratory Results 11/29/18 03:29 11/29/18 11:14 11/28/18 11/29/18 11/30/18 05:59 05:59 05:59 Intake Total 1874 1077 Output Total 1125 1725 Balance 749 -648 PT 14.3 SEC (12.0-15.0) 11/25/18 00:30 INR 1.16 (0.83-1.16) 11/25/18 00:30 - Physical Exam Constitutional: no apparent distress Ears, Nose, Mouth, Throat: moist mucous membranes Cardiovascular: regular rate and rhythym Respiratory: reduced air movement Gastrointestinal: normoactive bowel sounds, soft, non-tender abdomen Skin: warm Neurologic: No AAOx3 Psychiatric: encephalopathic Lymph, Heme, Immunologic: No petechiae ICD10 Worksheet Patient Problems: Problems Problem Status Onset Acute cystitis Acute Hypoxia Acute Pancreatitis Acute
--- NOTE | 2018-11-29 13:19 | PCMIDPN ---
Assessment/Plan: Assessment: 33-year-old woman with acute pancreatitis complicated by acute systolic heart failure, emphysematous cystitis with E coli, acute respiratory failure, transaminitis, and hyperbilirubinemia. She is clinically stable off vasopressor medications and without fevers after her transition to Unasyn from ceftriaxone. 1. Emphysematous cystitis with E coli stable 2. Acute respiratory failure, likely component of acute heart failure with possible aspiration pneumonitis 3. Acute systolic heart failure, likely consequence of alcohol use 4. Acute, severe pancreatitis, likely alcohol induced 5. Transaminase elevation likely related to alcohol use; improving 6. Hyperbilirubinemia; Stable 7. Alcohol abuse, chronic Plan: 1. Continue Unasyn; absent further complications related to infection anticipate stopping Unasyn after 12/05 as this will be 7 days for possible aspiration pneumonia and would be 10 days targeted towards emphysematous cystitis 2. Reviewed in detail potential side effects of beta-lactam antibiotics with patient's parents at bedside to include: allergy, rash, nausea, antibiotic- associated diarrhea, Clostridioides difficile colitis. 3. She will need a repeat CT of her abdomen, ideally with contrast to evaluate the gallbladder neck enhancing lesion after she recovers from this acute illness and other potential concomitant nephrotoxic risks are resolved so she can have a contrast scan Mikal Harris MD Infectious Diseases 11/29/18 13:24 Subjective: Remains sedated on a ventilator. No vasopressor medications required. She has not had fever since 11/27 at approximately 11:00 p.m.. No bowel movements reported by nursing at bedside. Discussed patient care with parents or at bedside. Objective: Vital Signs Temp Pulse Resp BP Pulse Ox 38 C 83 14 105/85 H 99 11/29/18 12:00 11/29/18 12:00 11/29/18 12:00 11/29/18 12:00 11/29/18 12:00 Laboratory Results 11/29/18 03:29 11/29/18 11:14 11/28/18 11/29/18 11/30/18 05:59 05:59 05:59 Intake Total 1874 1077 Output Total 1126 1725 Balance 749 -648 Ongoing monitoring for antimicrobial toxicity with: CBC, BMP, interval historical information, and interval physical exam. Discussed treatment/diagnostic testing and testing results with admitting provider(s). Personally reviewed interval laboratory results. - Physical Exam General Appearance: other (No acute distress sedated on ventilator) EENT: No scleral icterus Respiratory: other (No respiratory distress with full ventilator support; coarse breath sounds throughout), No wheezing Neck: normal inspection Cardiac/Chest: tachycardia, No bradycardia, No diastolic murmur, No systolic murmur Extremities: No inflammation, No swelling, No erythema Abdomen: other (Normal active bowel sounds, not distended, soft) Skin: other (No rash noted on skin exam) Neuro/Psych: other (Sedated on ventilator) ICD10 Worksheet Patient Problems: Problems Problem Status Onset Acute cystitis Acute Hypoxia Acute Pancreatitis Acute
[2018-11-29] MEDS ORDERED: FUROSEMIDE 20 MG/2 ML VIAL IVP SCH (14:00)
--- NOTE | 2018-11-29 15:07 | PDCARPN ---
Cardiology Progress Note Chief Complaint: Patient remains intubated today Assessment/Plan: Assessment: 11-29-18 Patient remains intubated and sedated. Parents were at bedside again this morning. Discussion with parents this morning on how cardiology would like to re-image with echocardiography. Discussion also involved an understanding that this assessment can be premature. The patient continues to have a lot of ongoing pathology. Improvements in labs are being noted (pancreas and LFTs). Continued air way protection given aspiration risk and uncertainly on where she may be with her withdrawal from alcohol (given history of "seizures" more often than once). UTI and possible aspiration pneumonia are being aggressively treated with IV antibiotic coverage. Reassessment of gall bladder given initial imaging with possible thrombus/ring enhancement is pending improvement in CV status. 11-28-18 Patient remains intubated and sedated. Parents were at bedside this morning. 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 Notable LFT and pancreatic enzyme elevations were noted (consistent with acute pancreatitis) . Urinary tract infection (patient's mother stated that the patient has had long standing issues with controlling this diagnosis) at the time of presentation. Chronic cholecystitis without acute involvement noted. As stated yesterday, there is multisystem involvement noted. Cardiology with recommendations for supportive measures - would attempt to get patient through the time frame of alcohol withdrawal given the severe reduction in systolic function noted by echocardiography. 11-27-18 Patient is a 33 y/o female with unremarkable past cardiovascular history (no CAD , HTN, HLP, or DM), who presented to [facility] on 11-24-17 after progressive issues noted with abdominal pains and burning with urination. At present, the patient is intubated in the ICU. Review of ER note and admission note assisted with vast majority of the patient's history. About one week prior to these symptoms being noted, the patient was treated with levoquin for suspected pneumonia. Long history of alcohol abuse with "seizures" reported. Greater than six drinks per day is reported. In the ER, labs and CXR pointed in the direction of both acute pancreatitis and UTI. LFTs with Alk phos to 246, AST to 546, and ALT was 108. Lipase was greater than 5000. No ECG in the ER. Abdominal ultrasound the following day with mild gall bladder wall thickening. HIDA scan without obstruction. The patient acutely decompensated last night and required intubation. CT of chest was performed to ensure no PE, and none was noted. Mild cardiomegaly was noted, as well as pleural effusions. Evidence was also suggestive of the aforementioned pancreatitis. Given the acute changes that were noted, the patient had echocardiography today, and severe reduction in left ventricular systolic ejection fraction was noted (20%) with global hypokinesis noted. Moderate LV dilation was noted as well as RV dysfunction. No significant valve pathology was noted. RVSP was elevated to about 50 mm Hg. With this testing, cardiology was consulted to provide recommendations. Plan: (1) Supportive measures to continue today (2) Feeding to being today (3) Would have limited echo for reassessment of LVEF and wall motion prior to change of service beginning tomorrow - this might allow more aggressive management of other systems if improvements in systolic function are noted (4) Cardiology will continue to follow this patient while she remains in house Subjective: Intubated and sedated Reviewed/Discussed With: family Objective: Vital Signs (8 Hrs) Temp Pulse Resp BP Pulse Ox 11/29/18 14:00 37.8 C 80 21 H 98/81 H 97 11/29/18 12:00 38 C 83 14 105/85 H 99 11/29/18 11:33 83 14 98 11/29/18 11:00 82 19 111/88 H 96 11/29/18 10:00 83 20 89/69 L 97 11/29/18 08:11 84 18 99 11/29/18 08:00 37.8 C 84 14 99/86 H 99 Intake/Output (24 Hrs) 11/28/18 11/29/18 11/30/18 05:59 05:59 05:59 Intake Total 1874 1077 Output Total 1125 1725 900 Balance 899 -163 -900 Intake: Oral (ml) 0 IV Intake (ml) 350 IV Infused (ml) 1874 727 Albumin 25% 50 ml @ As 50 Directed IV ONCE ONE Rx#: [id number] Dexmedetomidine HCl 400 145 230 mcg In Ns 100 ml @ Per Protocol IV CONT TERESA Rx#: [id number] Ns 1,000 ml @ 150 mls/hr 1461 291 IV CONT TERESA Rx#: [id number] Propofol/Emulsion 100 ml 168 152 @ Titrate IV CONT TERESA Rx# :[id number] fentaNYL/NACL 100 ml @ 50 54 Per Protocol IV CONT TERESA Rx#:[id number] Output: Urine (ml) 925 1225 900 Catheter 925 1225 900 OG Tube Output (ml) 200 500 Non-weighted Oral Stomach 200 500 Other: Weight 69 kg 69.3 kg Number of Stools Catheter 0 0 Incontinence 1 Result Diagrams: 11/29/18 03:29 11/29/18 11:14 Cardiac Labs: Cardiac Lab Results (72 Hrs) 11/28/18 11/27/18 11/27/18 00:50 18:15 15:30 Troponin I 0.116 H 0.142 H 0.134 H Telemetry: sinus rhythm - Physical Exam Constitutional: other (intubated and sedated) Eyes: EOMI Ears, Nose, Mouth, Throat: moist mucous membranes Cardiovascular: regular rate and rhythm, no murmurs, no rubs, no gallops, pulses symmetric bilat, No jugular vein distention Peripheral Pulses: 2+: dorsalis-pedis (R), dorsalis-pedis (L) Respiratory: other (course breath sounds) Gastrointestinal: other (hypoactive bowel sounds) Skin: no edema Neurologic: paresis Psychiatric: encephalopathic (sedated/intubated) ICD10 Worksheet Patient Problems: Problems Problem Status Onset Acute cystitis Acute Hypoxia Acute Pancreatitis Acute
--- NOTE | 2018-11-29 15:50 | ECHO ---
[email or web address] [address] Main: [phone] Echocardiography Examination Transthoracic Name: BHUPINDER GIFFORD MR#: [id number] Study Date: 11/29/2018 Study Time: 03:10 PM Date of : 1985 Age: 33 year(s) Height: ( ) Weight: ( ) BSA: Gender: Female Examination: Limited Echo Contrast: Image Quality: Adequate Rhythm: Normal sinus rhythm Heart Rate: 80 bpm BP: 98 mmHg/83 mmHg Indication: LTD to reassess LVFX Procedure Staff Referring Physician: Spot Worker: Sonal Moore RDCS Reading Physician: Jake Ba MD Requesting Provider: Ordering Physician: Sanjiv Antonio Indication: LTD to reassess LVFX Measurements Chambers TV/PV Label Value Normal Value Label Value Normal Value LVDd, 2D 5.2 cm (3.9cm - 5.3cm) TR Pmax 23 mmHg LVDs, 2D 4.5 cm (2.1cm - 4cm) TR Vmax 2.39 m/s IVSd, 2D 0.8 cm (0.6cm - 1.1cm) LVPWd, 2D 0.9 cm LVEF, BP 26 % (55% - 70%) LVEF, 2D 28 % (54% - 74%) RVDd, 2D 4.1 cm (1.9cm - 3.8cm) Conclusions (1) Left ventricular systolic ejection fraction is moderately to severely reduced at 25%. This is slightly improved in comparison to prior echo (2) Moderate LV dilation is noted (3) No LVh (4) Small pericardial effusion (5) Moderate to large left sided pleural effusion Findings Patient: BHUPINDER GIFFORD Study Date: 11/29/2018 Page 1 of 2 03:10 PM Left Ventricle: Left ventricle is dilated. Moderately to severely reduced systolic LV function. EF evaluated by EF (biplane Pugh's). The ejection fraction, measured by Simpsons method, is 26 %. EF range is estimated at 20 % - 25 %. Global hypokinesis. No LV hypertrophy. Right Ventricle: Dilated right ventricle. Right ventricular systolic function is reduced. Pericardium: A small pericardial effusion was identified. There is a left pleural effusion. Exam Details Procedure Ordered: Limited Echo Procedure Status: Routine study Image Quality: Adequate Facility Location: Cardiac Echo 1 (No Signature Object) Patient: BHUPINDER GIFFORD Study Date: 11/29/2018 Page 2 of 2 03:10 PM [id number]
[2018-11-29] MEDS ORDERED: MAGNESIUM SULF 1 GM/DEXTROSE 100 ML IV ONE (17:34)
[2018-11-30] MEDS: LORazepam 2 MG/ML INJ IVP PRN ×7 (01:22→18:50)
[2018-11-30] MEDS: AMPICILLIN/SULBACTAM 3 GM in NS 100 ML IV SCH ×4 (02:01→17:17)
[2018-11-30] MEDS: FUROSEMIDE 20 MG/2 ML VIAL IVP SCH ×3 (02:05→17:24)
[2018-11-30] MEDS: LORazepam 2 MG/ML INJ IVP SCH ×4 (02:05→23:47)
[2018-11-30] MEDS: ALBUMIN 25% 100 ML IV SCH (05:41)
[2018-11-30] MEDS ORDERED: MAGNESIUM SULF 2 GM/WATER 50 ML IV ONE (06:38)
[2018-11-30] MEDS ORDERED: POTASSIUM Cl (KCl) 50 ML IV ONE ×3 (06:38→19:16)
[2018-11-30] MEDS: ONDANSETRON 4 MG/2 ML VIAL IVP PRN ×2 (07:13→12:31)
[2018-11-30] MEDS: PANTOPRAZOLE SODIUM 40 MG VIAL IVP SCH (08:06)
[2018-11-30] MEDS: ENOXAPARIN 30 MG/0.3 ML SYR SC SCH ×2 (08:09→20:26)
[2018-11-30] MEDS: THIAMINE HCL 500 MG in NS 100 ML IV SCH (08:26)
[2018-11-30] MEDS: DEXMEDETOMIDINE HCL 400 MCG in NS 100 ML IV SCH ×2 (08:40→20:09)
--- NOTE | 2018-11-30 09:46 | PDINTPN ---
Quenching Car Operator Progress Note Assessment/Plan: Assessment: Sepsis: Likely due to E.Coli UTI with emphysematous cystitis. On Unasyn for humphrey- sensitive E. Coli. WBC normal, still febrile. BP OK, no pressors. Hypotension: Improved, but still low. Likely due to LV dysfunction and sepsis. On no pressors. CHF: With EF 20%, global hypokinesis. Likely due to sepsis, possibly EtOH. Respiratory Failure: Hypoxemic. Due to sepsis and CHF, with extensive basilar- predominant consolidation and moderate-large effusions. Aspiration possible but less likely. Self-extubated 11/30 early a.m.. Now on nasal cannula oxygen. Diuresing well with Lasix/albumin EtOH abuse: History of moderately heavy daily use and prior withdrawal symptoms , including seizures. Abstinent at least since 11/24. Nutrition: None Plan: Reduce sedation, Unasyn, thiamine. Continue Lasix, stop albumin Follow blood pressure closely Follow chest x-ray. DVT prophylaxis Increase activity. Delirium protocols D/W RN, RT, hospitalist, family 11/30/18 11:07 Subjective: Patient reports some back pain and weak voice, but otherwise feels better. Objective: Vital Signs Temp Pulse Resp BP Pulse Ox 36.8 C 93 29 H 134/102 H 97 11/30/18 07:34 11/30/18 07:34 11/30/18 07:34 11/30/18 07:34 11/30/18 07:34 Laboratory Results 11/29/18 03:29 11/30/18 04:20 11/29/18 11/30/18 12/01/18 05:59 05:59 05:59 Intake Total 1077 1357.9 Output Total 1725 4550 Balance -648 -3192.1 PT 14.3 SEC (12.0-15.0) 11/25/18 00:30 INR 1.16 (0.83-1.16) 11/25/18 00:30 Echo 11/29: EF 25% CXR: Persistent CM, interstitial infiltrates and venous congestion. Images reviewed by me. Physical Exam - Physical Exam General Appearance: alert, no apparent distress EENT: normal ENT inspection Neck: normal inspection Respiratory: decreased breath sounds Cardiac/Chest: normal peripheral pulses, regular rate, rhythm, No edema Abdomen: normal bowel sounds, non-tender Skin: normal color, warm/dry Extremities: normal inspection Neuro/Psych: alert, No normal mood/affect, No oriented x 3 ICD10 Worksheet Patient Problems: Problems Problem Status Onset Acute cystitis Acute Hypoxia Acute Pancreatitis Acute
--- NOTE | 2018-11-30 11:21 | PCMIDPN ---
Assessment/Plan: Assessment/Plan: * Severe sepsis associated with emphysematous cystitis due to E coli: Overall clinically improved. Blood cultures are no growth. Occasional low-grade temperature but overall less prominent. Continue Unasyn with anticipated 10 day course of therapy (tentative stop date 12/05/2018). * Possible aspiration pneumonia: Covered by Unasyn as outlined above. * Fever: Repeat blood cultures are no growth. Suspect some fever related to cytokine release associated with possible aspiration and intubation. 11/30/18 11:19 Subjective: Patient self-extubated. Complains of difficulty speaking. Objective: Vital Signs Temp Pulse Resp BP Pulse Ox 36.8 C 90 18 121/97 H 97 11/30/18 07:34 11/30/18 10:00 11/30/18 10:00 11/30/18 10:00 11/30/18 10:00 Laboratory Results 11/29/18 03:29 11/29/18 11/30/18 12/01/18 05:59 05:59 05:59 Intake Total 1077 1357.9 Output Total 1725 4550 [facility] -648 -3192.1 Unasyn # 4 Blood cultures x2 11/27/2018 no growth Chest x-ray with pulmonary edema - Physical Exam General Appearance: non-toxic EENT: dry mucous membranes, other (Weak voice) Respiratory: lungs clear (Anterolaterally), No respiratory distress Cardiac/Chest: regular rate, rhythm Abdomen: non-tender, distended (Mild) Skin: other (Scattered ecchymoses), No embolic lesions ICD10 Worksheet Patient Problems: Problems Problem Status Onset Acute cystitis Acute Hypoxia Acute Pancreatitis Acute
--- NOTE | 2018-11-30 11:23 | SOAPPROG ---
SOAP Progress Note Assessment/Plan: Assessment: 33 y/o woman with heavy ETOH use with new systolic CHF with LVEF 25%. She self extubated last night. In sinus rhythm and mildly hypervolemic. PLAN: 1)start IV enalapriat 2.5mg q8hrs 2)probably tomorrow when passes swallowing eval and more strong start on PO ACEI and beta jasson. 3)follow rhythm for any new afib or VT. 11/30/18 11:20 Subjective: extubated. She moans she is tired. Denies chest pressure or near syncope. Objective: Vital Signs Temp Pulse Resp BP Pulse Ox 36.8 C 90 18 121/97 H 97 11/30/18 07:34 11/30/18 10:00 11/30/18 10:00 11/30/18 10:00 11/30/18 10:00 Laboratory Results 11/29/18 03:29 11/29/18 11/30/18 12/01/18 05:59 05:59 05:59 Intake Total 1077 1357.9 Output Total 1725 4550 Balance -648 -3192.1 PT 14.3 SEC (12.0-15.0) 11/25/18 00:30 INR 1.16 (0.83-1.16) 11/25/18 00:30 Physical Exam - Physical Exam General Appearance: thin (tired appearing), other EENT: normal ENT inspection Neck: non-tender Respiratory: lungs clear Cardiac/Chest: regular rate, rhythm, gallop, JVD, systolic murmur Peripheral Pulses: 2+: carotid (R), carotid (L), femoral (R), femoral (L), dorsalis-pedis (R), dorsalis-pedis (L) Abdomen: non-tender, No hepatomegaly Skin: warm/dry Extremities: No pedal edema Neuro/Psych: No alert ICD10 Worksheet Patient Problems: Problems Problem Status Onset Acute cystitis Acute Hypoxia Acute Pancreatitis Acute
[2018-11-30] MEDS: ENALAPRILAT DIHYDRATE 1.25 MG/ML VIAL IVP SCH ×2 (11:31→20:25)
[2018-11-30] MEDS ORDERED: MAGNESIUM SULF 1 GM/DEXTROSE 100 ML IV ONE ×2 (11:35→19:16)
--- NOTE | 2018-11-30 13:16 | HOSPPROG ---
Hospitalist Progress Note Assessment/Plan: #Sepsis -E-UTI, possible emphysematous cystitis -Long sensitive E-Coli -ID following -Cont Unasyn # acute resp failure - d/t bilat pulm infiltrates vs pulmonary edema -self extubated on 11/29 -cont diuretics. Albumin was stopped # possible aspiration pna - unasyn # acute sCHF, EF 20% with flash pulmonary edema - cards -Lasix -WALLACE-I -monitor bp # Hypotension, likely multifactorial, sepsis, low EF. Monitor closely # acute encephalopathy - resolved # pancreatitis - resolving # chronic cholecystis - appreciate Dr Waite's assistance - no indication for cholecystectomy now # etOH abuse and w/d, history of seizures - propofol, precedex, ativan as above # colitis on CT # ring enhancing lesion in GB neck - unclear clinical significance # ? SMV-portal vein thrombosis - no AC at this point, could re-evaluate later #Hypomagnesemia, replace as needed FEN: on tube feeds, bedside swallow today. SCD's, Lovenox Subjective: no cp or sob. no n/v. Objective: Vital Signs Temp Pulse Resp BP Pulse Ox 36.9 C 99 25 H 115/88 H 96 11/30/18 12:00 11/30/18 12:00 11/30/18 12:00 11/30/18 12:00 11/30/18 12:00 Laboratory Results 11/29/18 03:29 11/30/18 11:10 11/29/18 11/30/18 12/01/18 05:59 05:59 05:59 Intake Total 1077 1357.9 Output Total 1725 4550 Balance -648 -7972.1 PT 14.3 SEC (12.0-15.0) 11/25/18 00:30 INR 1.16 (0.83-1.16) 11/25/18 00:30 - Physical Exam Constitutional: no apparent distress Eyes: PERRL, EOMI Ears, Nose, Mouth, Throat: moist mucous membranes Cardiovascular: regular rate and rhythym, No edema Respiratory: no respiratory distress, reduced air movement Gastrointestinal: normoactive bowel sounds, soft, non-tender abdomen Skin: warm Neurologic: AAOx3 Psychiatric: interacting appropriately, not anxious, not encephalopathic Lymph, Heme, Immunologic: No petechiae ICD10 Worksheet Patient Problems: Problems Problem Status Onset Acute cystitis Acute Hypoxia Acute Pancreatitis Acute
[2018-11-30] MEDS ORDERED: ENALAPRILAT DIHYDRATE 1.25 MG/ML VIAL IVP SCH (14:00)
[2018-11-30] MEDS: PROMETHAZINE HCL 25 MG/ML INJ IVP PRN (14:45)
[2018-11-30] MEDS ORDERED: ALBUMIN 5% 250 ML BOTTLE IV ONE (20:21)
[2018-12-01] MEDS: AMPICILLIN/SULBACTAM 3 GM in NS 100 ML IV SCH ×5 (00:12→23:36)
[2018-12-01] MEDS: FUROSEMIDE 20 MG/2 ML VIAL IVP SCH ×3 (02:13→16:37)
[2018-12-01] MEDS: ENALAPRILAT DIHYDRATE 1.25 MG/ML VIAL IVP SCH ×3 (03:55→20:27)
[2018-12-01] MEDS: LORazepam 2 MG/ML INJ IVP SCH ×2 (06:15→11:56)
[2018-12-01] MEDS: DEXMEDETOMIDINE HCL 400 MCG in NS 100 ML IV SCH (06:19)
[2018-12-01] MEDS ORDERED: MAGNESIUM SULF 2 GM/WATER 50 ML IV ONE (06:28)
--- NOTE | 2018-12-01 08:11 | SOAPPROG ---
SOAP Progress Note Assessment/Plan: Assessment: 33 y/o woman with heavy ETOH use with new systolic CHF with LVEF 25%. She is improving with stable to high BP readings. Off ETOH and with some IV enalapriat I think her LVEF is improving. PLAN: 1)decrease lasix to 20mg IV BID 2)start Toprol XL 25mg PO qam 3)start Aldactone 25mg PO qam. 4)probably tomorrow change IV Vasotec to PO Lisinopril 5)?swallowing evaluation today to begin PO meds and diet. 12/01/18 08:07 Subjective: still sleepy but more awakeable. Denies CP, rest shortness of breath, PND or palpitations. Father at bedside. Objective: Vital Signs Temp Pulse Resp BP Pulse Ox 36.4 C 81 24 H 141/106 H 99 11/30/18 20:57 12/01/18 06:00 12/01/18 06:00 12/01/18 06:00 12/01/18 06:00 Laboratory Results 12/01/18 05:17 12/01/18 05:17 11/30/18 12/01/18 12/02/18 05:59 05:59 05:59 Intake Total 1357.9 1467 Output Total 4550 2700 Balance -3192.1 -1233 PT 14.3 SEC (12.0-15.0) 11/25/18 00:30 INR 1.16 (0.83-1.16) 11/25/18 00:30 Physical Exam - Physical Exam General Appearance: thin, No alert EENT: PERRL/EOMI Neck: non-tender Respiratory: lungs clear Cardiac/Chest: regular rate, rhythm, No gallop, No JVD ((+) loud S4 heard.) Peripheral Pulses: 2+: carotid (R), carotid (L), femoral (R), femoral (L), dorsalis-pedis (R), dorsalis-pedis (L) Abdomen: No guarding Skin: warm/dry Extremities: No pedal edema Neuro/Psych: cognition abnormalities ICD10 Worksheet Patient Problems: Problems Problem Status Onset Acute cystitis Acute Hypoxia Acute Pancreatitis Acute
--- NOTE | 2018-12-01 08:53 | PCMIDPN ---
Assessment/Plan: Assessment/Plan: * Severe sepsis associated with emphysematous cystitis due to E coli: Continued slow clinical improvement. Planning 10 days of antibiotic therapy for emphysematous cystitis with stop date of 12/05/2018. No active signs or symptoms of ongoing infection. * Possible aspiration pneumonia: Respiratory status improving with chest x-ray yesterday showing primarily pulmonary edema. Covered by Unasyn as outlined above. * Fever: Resolved. Repeat blood cultures are no growth. Continue to observe over time. 12/01/18 08:50 Subjective: Patient complains of difficulty with voice. Denies any pain. Self remove Eckert overnight. Required some Precedex overnight as well. Objective: Vital Signs Temp Pulse Resp BP Pulse Ox 36.4 C 85 40 H 130/105 H 94 12/01/18 08:00 12/01/18 08:00 12/01/18 08:00 12/01/18 08:00 12/01/18 08:00 Laboratory Results 12/01/18 05:17 12/01/18 05:17 11/30/18 12/01/18 12/02/18 05:59 05:59 05:59 Intake Total 1357.9 1467 Output Total 4550 2700 Balance -3192.1 -1233 Unasyn # 5 (stop date 12/05/2018) Blood cultures x2 11/27/2018 no growth - Physical Exam General Appearance: non-toxic, other (Sleepy but interacts appropriately with examiner) EENT: scleral icterus, No thrush, No conjunctival petechiae Respiratory: crackles (Bilateral bases), No respiratory distress Cardiac/Chest: regular rate, rhythm Extremities: No inflammation Abdomen: non-tender, No distended Skin: No rash - Line/s RUE PICC Lines: No drainage, No erythema ICD10 Worksheet Patient Problems: Problems Problem Status Onset Acute cystitis Acute Hypoxia Acute Pancreatitis Acute
[2018-12-01] MEDS: POTASSIUM Cl (KCl) 50 ML IV SCH ×6 (09:40→17:20)
[2018-12-01] MEDS: PANTOPRAZOLE SODIUM 40 MG VIAL IVP SCH (10:00)
[2018-12-01] MEDS: THIAMINE HCL 500 MG in NS 100 ML IV SCH (10:00)
[2018-12-01] MEDS: ENOXAPARIN 30 MG/0.3 ML SYR SC SCH ×2 (10:00→20:28)
--- NOTE | 2018-12-01 11:41 | PDINTPN ---
Facility Security Officer Progress Note Assessment/Plan: Assessment: Sepsis: Likely due to E.Coli UTI with emphysematous cystitis. On Unasyn for humphrey- sensitive E. Coli. WBC normal, still febrile. BP OK, no pressors. Hypotension: Improved, but still low. Likely due to LV dysfunction and sepsis. On no pressors. CHF: With EF 20%, global hypokinesis. Likely due to sepsis, possibly EtOH. Respiratory Failure: Hypoxemic. Due to sepsis and CHF, with extensive basilar- predominant consolidation and moderate-large effusions. Aspiration possible but less likely. Self-extubated 11/30 early a.m.. Now on nasal cannula oxygen. Diuresing well with Lasix/albumin EtOH abuse: History of moderately heavy daily use and prior withdrawal symptoms , including seizures. Abstinent at least since 11/24. Had significant withdrawal symptoms 11/30, including hallucinations. Received a total of 20 mg of Ativan and was started on Precedex Nutrition: None Plan: Continue Unasyn, thiamine. Continue Lasix at reduced dose per Dr. Mayer Will stop scheduled Ativan. Continue Ativan per CIWA protocol. Increase activity, delirium protocols to help with final stages of alcohol withdrawal Follow chest x-ray. DVT prophylaxis Advance diet now that she has passed swallowing evaluation D/W RN, RT, hospitalist, family 12/01/18 11:40 Subjective: Feels better today, less disoriented. Denies hallucinations. Feels like she can't take a full breath. Objective: Vital Signs Temp Pulse Resp BP Pulse Ox 36.4 C 92 25 H 124/101 H 95 12/01/18 08:00 12/01/18 10:00 12/01/18 10:00 12/01/18 10:00 12/01/18 10:00 Laboratory Results 12/01/18 05:17 12/01/18 05:17 11/30/18 12/01/18 12/02/18 05:59 05:59 05:59 Intake Total 1357.9 1467 Output Total 4550 2700 Balance -3192.1 -1233 PT 14.3 SEC (12.0-15.0) 11/25/18 00:30 INR 1.16 (0.83-1.16) 11/25/18 00:30 Physical Exam - Physical Exam General Appearance: alert, no apparent distress EENT: normal ENT inspection Neck: normal inspection Respiratory: crackles Cardiac/Chest: regular rate, rhythm, No edema Abdomen: normal bowel sounds, non-tender Skin: normal color, warm/dry Extremities: non-tender Neuro/Psych: alert, normal mood/affect, oriented x 3 ICD10 Worksheet Patient Problems: Problems Problem Status Onset Acute cystitis Acute Hypoxia Acute Pancreatitis Acute
[2018-12-01] MEDS: METOPROLOL SUCCINATE XR 25 MG TAB PO SCH (12:02)
[2018-12-01] MEDS: SPIRONOLACTONE 25 MG TAB PO SCH (12:02)
--- NOTE | 2018-12-01 13:28 | HOSPPROG ---
Hospitalist Progress Note Assessment/Plan: #Sepsis -E-UTI, possible emphysematous cystitis -Long sensitive E-Coli -ID following -Cont Unasyn # acute resp failure - d/t bilat pulm infiltrates vs pulmonary edema -self extubated on 11/29 -cont diuretics. Albumin was stopped 11/30 -Tachypnea this morning, will obtain CXR # possible aspiration pna - unasyn # acute sCHF, EF 20% with flash pulmonary edema - cards -Lasix -WALLACE-I -BB -monitor bp, doing well # Hypotension, likely multifactorial, sepsis, low EF. Monitor closely -holding well # acute encephalopathy - intermittent agitation is present. Required Ativan and Precedex last night. Doing better this a.m. # pancreatitis - resolving # chronic cholecystis - appreciate Dr Waite's assistance - no indication for cholecystectomy now # etOH abuse and w/d, history of seizures # colitis on CT # ring enhancing lesion in GB neck - unclear clinical significance # ? SMV-portal vein thrombosis - no AC at this point, could re-evaluate later #Hypomagnesemia, replace as needed FEN: Passed bedside swallow. Ok to start diet. If tolerates can stop tube feeds SCD's, Lovenox Subjective: slightly confused. no agitation noted. breathing fast Objective: Vital Signs Temp Pulse Resp BP Pulse Ox 36.6 C 89 34 H 126/97 H 95 12/01/18 11:42 12/01/18 11:42 12/01/18 11:42 12/01/18 11:42 12/01/18 11:42 Laboratory Results 12/01/18 05:17 12/01/18 05:17 11/30/18 12/01/18 12/02/18 05:59 05:59 05:59 Intake Total 1357.9 1467 Output Total 4550 2700 Balance -3192.1 -1233 PT 14.3 SEC (12.0-15.0) 11/25/18 00:30 INR 1.16 (0.83-1.16) 11/25/18 00:30 - Physical Exam Constitutional: no apparent distress Eyes: PERRL, EOMI Ears, Nose, Mouth, Throat: moist mucous membranes, hearing normal Cardiovascular: regular rate and rhythym Respiratory: reduced air movement, other (tachypnea), No clear to auscultation Gastrointestinal: normoactive bowel sounds, no palpable masses Skin: warm Neurologic: AAOx3 Psychiatric: interacting appropriately, not anxious, not encephalopathic Lymph, Heme, Immunologic: No petechiae ICD10 Worksheet Patient Problems: Problems Problem Status Onset Acute cystitis Acute Hypoxia Acute Pancreatitis Acute
--- NOTE | 2018-12-01 14:20 | ASMTCMCOM ---
CM Note CM Note Notes: CM spoke with pt, RN and pt's mother in the room. Pt still not able to speak d/t self-extubation and vocal trauma. DERRICK FOLLOWER is recommending inpatient rehab and PT/OT orders were placed today. Hospitalist notified of need for IpR eval order. Pt's mother and RN feel inpatient rehab is appropriate. Pt out of bed for the first time today and not alert enough to digest information on addiction treatment yet. CM to follow. D/C Plan: Ip Rehab pending eval Date Signed: 12/01/2018 02:18 PM Electronically Signed By:Lulu Ziegler
[2018-12-01] MEDS: LORazepam 2 MG/ML INJ IVP PRN ×3 (16:00→23:39)
[2018-12-01] MEDS: ONDANSETRON 4 MG/2 ML VIAL IVP PRN (21:06)
[2018-12-02] MEDS ORDERED: POTASSIUM Cl (KCl) 50 ML IV ONE (01:11)
[2018-12-02] MEDS: PROMETHAZINE HCL 25 MG/ML INJ IVP PRN (01:43)
[2018-12-02] MEDS: ENALAPRILAT DIHYDRATE 1.25 MG/ML VIAL IVP SCH ×3 (03:03→20:41)
[2018-12-02] MEDS: LORazepam 2 MG/ML INJ IVP PRN (03:03)
[2018-12-02] MEDS: AMPICILLIN/SULBACTAM 3 GM in NS 100 ML IV SCH ×4 (05:36→23:24)
[2018-12-02] MEDS ORDERED: MAGNESIUM SULF 2 GM/WATER 50 ML IV ONE (07:39)
[2018-12-02] MEDS: METOPROLOL SUCCINATE XR 25 MG TAB PO SCH (09:49)
[2018-12-02] MEDS: SPIRONOLACTONE 25 MG TAB PO SCH (09:49)
[2018-12-02] MEDS: PANTOPRAZOLE SODIUM 40 MG TAB PO SCH (09:49)
[2018-12-02] MEDS: FUROSEMIDE 20 MG/2 ML VIAL IVP SCH ×2 (09:49→16:09)
[2018-12-02] MEDS: THIAMINE HCL 100 MG TAB PO SCH (09:49)
[2018-12-02] MEDS: ENOXAPARIN 30 MG/0.3 ML SYR SC SCH (09:49)
[2018-12-02] MEDS ORDERED: LORazepam 2 MG/ML INJ IVP PRN (10:58)
--- NOTE | 2018-12-02 12:27 | HOSPPROG ---
Hospitalist Progress Note Assessment/Plan: 33yo F with history of alcohol abuse here with abdominal pain found to have UTI and pancreatitis. Course complicated by respiratory failure and new diagnosis of CHF. #Acute decompensated systolic CHF: LVEF 20%. 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 Cards following. - Switch IV katlyn inhibitor to PO tomorrow - Continue beta jasson, spironolactone - IV diuresis, switch to PO soon #Acute alcohol withdrawal: Resolving - Start librium 10mg TID, continue PRN ativan #Acute hypoxemic respiratory failure: 2/2 pulm edema vs aspiration. Improved. Extubated 11/29. - Diuresis as above #E coli emphysematous cystitis: ID consulted - Continue unasyn for 10 days (through 12/05) #Severe sepsis: Physiology resolved. #Possible aspiration pneumonia - Covered with unasyn #Acute metabolic encephalopathy: Resolved. #Hypotension: 2/2 sepsis, low EF. Improved today. #Acute alcoholic pancreatitis: Resolving. She is eating today. #Alcohol abuse: Multiple providers, including myself, have stressed importance of complete cessation. #Chronic cholecystis: Surgery consulted previously, no indication for tonya at present. #Colitis on CT #Ring enhancing lesion in GB neck: Unclear clinical significance. Outpt follow up #? SMV-portal vein thrombosis: No indication for anticoagulation. Consider re- eval at later date. #Hypomagnesemia: Replace as needed #Thrombocytopenia: 2/2 alcohol marrow suppression and consumptive. Resolved. VTE ppx: LMWH Diet: stopped tube feeds, regular Code: full Dispo: remain inpatient in SDU Subjective: No longer confused. Occasional abdominal pain and nausea but overall improving. Some orthopnea, no chest pain. Objective: Vital Signs Temp Pulse Resp BP Pulse Ox 36.2 C 121 H 20 133/106 H 93 12/02/18 12:00 12/02/18 12:00 12/02/18 12:00 12/02/18 12:00 12/02/18 12:00 Laboratory Results 12/01/18 05:17 12/02/18 03:15 12/01/18 12/02/18 12/03/18 05:59 05:59 05:59 Intake Total 1467 500 Output Total 2700 1252 Balance -1233 -752 PT 14.3 SEC (12.0-15.0) 11/25/18 00:30 INR 1.16 (0.83-1.16) 11/25/18 00:30 - Physical Exam Constitutional: chronically ill appearing Eyes: PERRL, anicteric sclera, EOMI Ears, Nose, Mouth, Throat: moist mucous membranes, hearing normal, ears appear normal, no oral mucosal ulcers Cardiovascular: no murmur, rub, or gallop, tachycardia, No edema Respiratory: reduced air movement (bilateral bases), inspiratory crackles, No expiratory wheeze Gastrointestinal: normoactive bowel sounds, soft, non-tender abdomen, no palpable masses Genitourinary: no bladder fullness, no bladder tenderness, no renal bruits Skin: no rashes or abrasions, no fluctuance, no induration Musculoskeletal: full muscle strength, no muscle tenderness, normal joint ROM Neurologic: AAOx3, sensation intact bilaterally Psychiatric: interacting appropriately, not anxious, not encephalopathic, thought process linear ICD10 Worksheet Patient Problems: Problems Problem Status Onset Acute cystitis Acute Hypoxia Acute Pancreatitis Acute
[2018-12-02] MEDS ORDERED: PROTOCOL POTASSIUM 1 DOSE MISC PRN (13:47)
--- NOTE | 2018-12-02 15:58 | PCMIDPN ---
Assessment/Plan: Assessment: Severe sepsis any young female with chronic alcoholism. Directly associated with emphysematous cystitis. Pansensitive E coli implicated by culture is the causative pathogen. She continues to improve slowly. She is in the midst of a 10 day course of IV Unasyn. Presentation complicated by possible aspiration pneumonia as well as alcoholic pancreatitis. Plan: 1. Continue plan for 10 days of IV Unasyn. 2. Follow clinical course and laboratory values. 3. Investigate whether B12 deficiency may be responsible for rash on soles of feet for greater than 1 month. 12/02/18 15:54 Subjective: Patient is resting in her chair in her room in the ICU. She is mildly somnolent but easily a woken to voice. She is pleasant in demeanor. She has no specific complaints other than some pain on the bottoms of her feet bilaterally. This is been going on for greater than 1 month. Overall she feels better currently than she did when she entered the hospital. She continues to suffer from some raspy and weak voice probably secondary to intubation. Objective: Unasyn # 6 Vital Signs Temp Pulse Resp BP Pulse Ox 36.2 C 121 H 20 133/106 H 93 12/02/18 12:00 12/02/18 12:00 12/02/18 12:00 12/02/18 12:00 12/02/18 12:00 Laboratory Results 12/01/18 05:17 12/02/18 03:15 12/01/18 12/02/18 12/03/18 05:59 05:59 05:59 Intake Total 1467 500 Output Total 2700 1252 500 Balance -1233 -752 -500 - Physical Exam General Appearance: WD/WN, alert, no apparent distress, non-toxic Respiratory: lungs clear, normal breath sounds, No respiratory distress Cardiac/Chest: regular rate, rhythm, No tachycardia, No irregularly irregular Extremities: erythema, No non-tender, No normal inspection (Red rash on bottom of both feet symmetric.) Skin: normal color, warm/dry, No rash (Except for as above) Neuro/Psych: alert, normal mood/affect, oriented x 3 ICD10 Worksheet Patient Problems: Problems Problem Status Onset Acute cystitis Acute Hypoxia Acute Pancreatitis Acute
--- NOTE | 2018-12-02 16:04 | PDINTPN ---
Painter Drum Progress Note Assessment/Plan: Assessment: Sepsis: Likely due to E.Coli UTI with emphysematous cystitis. On Unasyn for humphrey- sensitive E. Coli. WBC normal, afebrile. BP OK, no pressors. Hypotension: Resolved. Likely due to LV dysfunction and sepsis initially. Required no pressors. Now hypertensive. Hypertension. Associated with tachycardia. On Pablo inhibitors and metoprolol. Increasing these. CHF: With EF 20%, global hypokinesis. Likely due to EtOH, possibly sepsis. Respiratory Failure: Hypoxemic, intubated on admission. Due to sepsis and CHF, with extensive basilar-predominant consolidation and moderate-large effusions. Aspiration possible but less likely. Self-extubated 11/30. Now on nasal cannula oxygen. Diuresing well with Lasix/albumin. EtOH abuse: History of moderately heavy daily use and prior withdrawal symptoms , including seizures. Abstinent at least since 11/24. Had significant withdrawal symptoms 11/30, including hallucinations. On high-dose Ativan and Precedex initially. Pancreatitis: Resolving. Associated initially with nausea and vomiting. Nutrition: Eating now, with good appetite. Prophylaxis: On enoxaparin and pantoprazole Plan: D/C CIWA protocol, continue thiamine. Start low-dose scheduled Librium with p.r.n. Ativan for anxiety. Continue Lasix at reduced dose per Cardiology. Increase activity, delirium protocols to help with final stages of alcohol withdrawal. Follow laboratory, chest x-ray intermittently. Continue GI and DVT prophylaxis. Advance diet. 35 min of critical care time spent directly with the patient. Discussed with the patient's parents, hospitalist, nursing, the ICU multi disciplinary team. Objective: Vital Signs Temp Pulse Resp BP Pulse Ox 36.2 C 121 H 20 133/106 H 93 12/02/18 12:00 12/02/18 12:00 12/02/18 12:00 12/02/18 12:00 12/02/18 12:00 Laboratory Results 12/01/18 05:17 12/02/18 03:15 12/01/18 12/02/18 12/03/18 05:59 05:59 05:59 Intake Total 1467 500 Output Total 2700 1252 500 Balance -1233 -752 -500 PT 14.3 SEC (12.0-15.0) 11/25/18 00:30 INR 1.16 (0.83-1.16) 11/25/18 00:30 ICD10 Worksheet Patient Problems: Problems Problem Status Onset Acute cystitis Acute Pancreatitis Acute Hypoxia Acute
[2018-12-02] MEDS ORDERED: POTASSIUM CL 20 MEQ TAB PO ONE (20:35)
[2018-12-02] MEDS ORDERED: METOPROLOL SUCCINATE XR 25 MG TAB PO SCH (21:00)
[2018-12-02] MEDS: METOPROLOL TARTRATE 25 MG TAB PO SCH (21:28)
[2018-12-03] MEDS: AMPICILLIN/SULBACTAM 3 GM in NS 100 ML IV SCH ×3 (05:11→17:38)
[2018-12-03] MEDS ORDERED: MAGNESIUM SULF 1 GM/DEXTROSE 100 ML IV ONE (05:35)
[2018-12-03] MEDS: THIAMINE HCL 100 MG TAB PO SCH (08:05)
[2018-12-03] MEDS: METOPROLOL TARTRATE 25 MG TAB PO SCH ×2 (08:05→20:12)
[2018-12-03] MEDS: PANTOPRAZOLE SODIUM 40 MG TAB PO SCH (08:05)
[2018-12-03] MEDS: SPIRONOLACTONE 25 MG TAB PO SCH (08:05)
[2018-12-03] MEDS: ENOXAPARIN 40 MG/0.4 ML SYR SC SCH (08:06)
[2018-12-03] MEDS: FUROSEMIDE 20 MG/2 ML VIAL IVP SCH (08:07)
[2018-12-03] MEDS ORDERED: LISINOPRIL 10 MG TAB PO SCH (09:00)
--- NOTE | 2018-12-03 10:04 | PCMIDPN ---
Assessment/Plan: 1. Severe sepsis secondary to E coli emphysematous cystitis: Much, much better. Continue Unasyn as is; stop date December 05, which is 2 days from now. No additional recommendations at this point in time. 2. ? Aspiration pneumonia: Off oxygen, better. Continue antibiotics as outlined above. 3. Tinea pedis: Start Lotrimin cream twice daily. 4. Hyper pigmented nevus plantar aspect left foot: Patient states this has not changed in the past year, although given its appearance (irregular borders, extreme hyperpigmentation), it absolutely needs further evaluation by a acid treater as an outpatient. This was conveyed to the patient and her mother, who will follow-up. No family history of melanoma. There is no rash, per se that I can see. 5. Miscellaneous: Talked to the patient privately. She does have a boyfriend, "off and on."Will obtain HIV antibody testing, syphilis EIA, GC chlamydia of the urine, and given her multiple tattoos hepatitis-C antibody. Over 25 min spent with this patient today. Subjective: Feels much better. No diarrhea. Mother present in room. Took a walk around the [place] today with PT! Complaining of her feet aching. Objective: Unasyn 3 g IV q.6 hours stop date December 05 T-max 37.2 degrees Vital Signs Temp Pulse Resp BP Pulse Ox 37.0 C 100 12 125/96 H 98 12/03/18 07:47 12/03/18 07:47 12/03/18 07:47 12/03/18 07:47 12/03/18 07:47 Microbiology 11/27/18 18:15 Blood Culture - Final Blood 11/27/18 16:08 Blood Culture - Final Blood Laboratory Results 12/01/18 05:17 12/03/18 04:00 12/02/18 12/03/18 12/04/18 05:59 05:59 05:59 Intake Total 500 1300 Output Total 1252 2300 Balance -752 -1000 No new microbiology - Physical Exam General Appearance: alert, no apparent distress EENT: pharynx normal, No thrush Respiratory: lungs clear Cardiac/Chest: regular rate, rhythm, No systolic murmur Abdomen: non-tender, soft Skin: other (Patient has some skin maceration between the web spaces of her toes bilaterally consistent with tinea pedis. Plantar aspect of left foot is notable for a small approximately half a cm by half a cm extremely hyper pigmented nevus with irregular borders. It is slightly raised.) Neuro/Psych: oriented x 3 ICD10 Worksheet Patient Problems: Problems Problem Status Onset Acute cystitis Acute Hypoxia Acute Pancreatitis Acute
[2018-12-03] MEDS: CETIRIZINE 10 MG TAB PO SCH (11:42)
[2018-12-03] MEDS: FUROSEMIDE 40 MG TAB PO SCH (11:42)
[2018-12-03] MEDS: CLOTRIMAZOLE/BETAMET DIPROP 15 GM CRTUBE TP SCH ×2 (11:42→20:12)
--- NOTE | 2018-12-03 12:11 | HOSPPROG ---
Hospitalist Progress Note Assessment/Plan: 33yo F with history of alcohol abuse here with abdominal pain found to have UTI and pancreatitis. Course complicated by respiratory failure and new diagnosis of CHF. #Acute decompensated systolic CHF: LVEF 20%. 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 Cards following. - Switch to PO lasix today - Increase lisinopril to 20mg daily - Continue BB, kaitlin #Acute alcohol withdrawal: Resolved - Continue librium 10mg TID (plan to stop over coming days), stopped CIWA #Acute hypoxemic respiratory failure: 2/2 pulm edema vs aspiration. Resolved. Extubated 11/29. #E coli emphysematous cystitis: ID consulted - Continue unasyn for 10 days (through 12/05) #Severe sepsis: Physiology resolved. #Possible aspiration pneumonia - Covered with unasyn #Acute metabolic encephalopathy: Resolved. #Hypotension: 2/2 sepsis, low EF. Improved today. #Acute alcoholic pancreatitis: Resolving. She is eating today. #Alcohol abuse: Multiple providers, including myself, have stressed importance of complete cessation. #Chronic cholecystis: Surgery consulted previously, no indication for tonya at present. #Colitis on CT #Ring enhancing lesion in GB neck: Unclear clinical significance. Outpt follow up #? SMV-portal vein thrombosis: No indication for anticoagulation. Consider re- eval at later date. #Hypomagnesemia: Replace as needed #Thrombocytopenia: 2/2 alcohol marrow suppression and consumptive. Resolved. #Generalized weakness: Per CM, accepted to inpatient rehab. #Tinea pedia: Lotrimin cream. VTE ppx: LMWH Diet: cardiac Code: full Dispo: remain inpatient in SDU Subjective: Continues to improve. No new complaints. Wondering if she can bring in her dog. Objective: Vital Signs Temp Pulse Resp BP Pulse Ox 37.0 C 110 H 20 123/93 H 92 12/03/18 07:47 12/03/18 11:33 12/03/18 11:33 12/03/18 11:33 12/03/18 11:33 Microbiology 11/27/18 18:15 Blood Culture - Final Blood 11/27/18 16:08 Blood Culture - Final Blood Laboratory Results 12/01/18 05:17 12/03/18 04:00 12/02/18 12/03/18 12/04/18 05:59 05:59 05:59 Intake Total 500 1300 Output Total 1252 2300 500 Balance -752 -1000 -500 PT 14.3 SEC (12.0-15.0) 11/25/18 00:30 INR 1.16 (0.83-1.16) 11/25/18 00:30 - Physical Exam Constitutional: no apparent distress, appears nourished, not in pain Eyes: PERRL, anicteric sclera, EOMI Ears, Nose, Mouth, Throat: moist mucous membranes, hearing normal, ears appear normal, no oral mucosal ulcers Cardiovascular: regular rate and rhythym, no murmur, rub, or gallop, edema Respiratory: no respiratory distress, reduced air movement (bases) Gastrointestinal: normoactive bowel sounds, soft, non-tender abdomen, no palpable masses Genitourinary: no bladder fullness, no bladder tenderness, no renal bruits Skin: no rashes or abrasions, no fluctuance, no induration Musculoskeletal: generalized weakness Neurologic: AAOx3 Psychiatric: interacting appropriately ICD10 Worksheet Patient Problems: Problems Problem Status Onset Acute cystitis Acute Hypoxia Acute Pancreatitis Acute
[2018-12-03 13:53] LABS: HEPATITIS C ANTIBODY TOTAL NEGATIVE (NEGATIVE)
--- NOTE | 2018-12-03 16:06 | ASMTCMCOM ---
CM Note CM Note Notes: CM spoke with Grace from [facility] who is waiting on updated insurance information for pt and to see if they have beds available. CM contacted financial counseling to obtain updates on insurance status. Christina from financial counseling said she would reach out to pt's dad who will bring information in. CM made multiple attempts to speak with pt's family who have not yet answered/returned phone call. CM notified RN that we are looking for updated insurance information. CM to continue to work with [facility] to see if she can be discharged there and if they have bed openings or possibly referral to another inpt rehab facility. Plan: inpt rehab pending acceptance/bed availability. Date Signed: 12/03/2018 04:05 PM Electronically Signed By:ERWIN Mac
--- NOTE | 2018-12-03 16:28 | PDINTPN ---
Failure Analysis Technician Progress Note Assessment/Plan: Assessment: Sepsis: Likely due to E.Coli UTI with emphysematous cystitis. On Unasyn for humphrey- sensitive E. Coli. WBC normal, afebrile. BP OK, no pressors. Hypotension: Resolved. Likely due to LV dysfunction and sepsis initially. Required no pressors. Now hypertensive. Hypertension. Associated with tachycardia. On Pablo inhibitors and metoprolo CHF: With EF 20%, global hypokinesis. Likely due to EtOH cardiomyopathy. Respiratory Failure: Hypoxemic, intubated on admission. Due to sepsis and CHF, with extensive basilar-predominant consolidation and moderate-large effusions. Aspiration possible but less likely. Self-extubated 11/30. Now off oxygen. Has diuresed well. Remains on Lasix. EtOH abuse: History of moderately heavy daily use and prior withdrawal symptoms , including seizures. Abstinent at least since 11/24. Had significant withdrawal symptoms 11/30, including hallucinations. On high-dose Ativan and Precedex initially. Pancreatitis: Resolving. Associated initially with nausea and vomiting. Nutrition: Eating now, with good appetite. Prophylaxis: On enoxaparin and pantoprazole Plan: Continue care, low-dose Librium. Can transfer to a medical-surgical bed, or direct to inpatient rehab if she is accepted there. Continue Lasix at reduced dose per Cardiology. Increase activity as tolerated Follow laboratory, chest x-ray intermittently as needed. Continue GI and DVT prophylaxis. Advance diet. 20 min of critical care time spent directly with the patient. Discussed with the patient's parents, hospitalist, nursing, the ICU multi disciplinary team. Subjective: Feels better. Denies pain or shortness of breath. Feels she is closer to baseline. Denies nausea vomiting or abdominal pain. No signs and symptoms of withdrawal. Very conversant, pleasant Objective: Vital Signs Temp Pulse Resp BP Pulse Ox 36.4 C 105 H 19 127/101 H 95 12/03/18 15:30 12/03/18 15:30 12/03/18 15:30 12/03/18 15:30 12/03/18 15:30 Microbiology 11/27/18 18:15 Blood Culture - Final Blood 11/27/18 16:08 Blood Culture - Final Blood Laboratory Results 12/01/18 05:17 12/03/18 04:00 12/02/18 12/03/18 12/04/18 05:59 05:59 05:59 Intake Total 500 1300 950 Output Total 1252 2300 1050 Balance -752 -1000 -100 PT 14.3 SEC (12.0-15.0) 11/25/18 00:30 INR 1.16 (0.83-1.16) 11/25/18 00:30 Laboratory Tests 12/02/18 12/03/18 03:15 04:00 Calcium 9.4 Phosphorus 4.1 Magnesium 1.6 NT-Pro-B Natriuret Pep 5210 H Vitamin B12 > 1000 H Physical Exam - Physical Exam General Appearance: alert, no apparent distress EENT: PERRL/EOMI, other (On room air) Neck: normal inspection (No JVD) Respiratory: lungs clear, normal breath sounds Cardiac/Chest: gallop (Soft gallop present), tachycardia (Sinus), systolic murmur Abdomen: normal bowel sounds, non-tender, soft Skin: warm/dry, pallor Extremities: pedal edema (Trace +) Neuro/Psych: no motor/sensory deficits, No cognition abnormalities ICD10 Worksheet Patient Problems: Problems Problem Status Onset Acute cystitis Acute Pancreatitis Acute Hypoxia Acute
[2018-12-03] MEDS ORDERED: POTASSIUM CL 10 MEQ TAB PO ONE (19:03)
[2018-12-04] MEDS: AMPICILLIN/SULBACTAM 3 GM in NS 100 ML IV SCH ×5 (00:06→23:37)
--- NOTE | 2018-12-04 03:22 | GPROG ---
[f rep st] PROGRESS NOTE DATE OF SERVICE: 12/03/2018 The patient is a 33-year-old female with a past medical history significant for alcohol abuse as well as alcohol withdrawal including seizure, who presented to the hospital with profound weakness and sh ortness of breath. Ultimately required intubation for sepsis which has been identified to be secondar y to a pansensitive E coli with the source from the GI tract. The patient ultimately underwent echoc ardiogram demonstrating ejection fraction of 20-25 percent with global hypokinesis, left ventricular chamber enlargement without significant valvar heart disease and a globally decreased ejection fracti on consistent with a dilated cardiomyopathy. These findings were thought to be secondary to the richar ent's alcohol abuse. The patient has been extubated and treated with intravenous Unasyn with a 10 da y course expected to be completed on 12/05/2018. The patient is being carefully followed by the [facility] ctious Disease Department and additional workup to evaluate for hepatitis, HIV and other sexually tra nsmitted infections is planned under the care of Dr. Sheppard. The patient has been started on medical therapy to treat the patient's cardiomyopathy, specifically with metoprolol, IV WALLACE inhibitor, spiron olactone under the care of Dr. Gordy Mayer. PHYSICAL EXAMINATION: GENERAL: The patient is pleasant and arousable. She has jaundice and icteric s clerae. NECK: Reveals no JVD or carotid bruit. HEART: Reveals normal S1 and S2 with a summation gall op sound and a murmur consistent with mild MR. LUNGS: Clear to auscultation bilaterally without whe ezes, rales or rhonchi. ABDOMEN: Benign with positive bowel sounds. It is nondistended, nontender. EXTREMITIES: Warm, dry, and well perfused without significant peripheral edema. She does have red ness of the soles of her feet bilaterally, which is of unclear significance. VITAL SIGNS: Reveal a b lood pressure of 123/93. Her heart rate is 110 and appears to be related to sinus tachycardia on the monitor. Oxygen saturation is 92% on room air. LABORATORY STUDIES: Sodium 138, potassium 4.1, BUN and creatinine are 6 and 0.4. Her total bilirubi n was last measured on November 29 as 5.8. Her white count is 4.65. H and H are 12.5 and 38.6 with an MCV of 107.8 consistent with a microcytic anemia. IMPRESSION/PLAN: The patient has a dilated cardiomyopathy that is likely related to alcohol abuse. She does need to be treated with oral beta jasson, WALLACE inhibitor, and potassium-sparing diuretic wit h an aldosterone antagonist as has been already initiated. Her ejection fraction may be more profoun dly affected by her recent sepsis as well. We should obtain an EKG now that she is no longer as tach ycardic. I believe the original EKG may have been confounded by limb lead reversal. I counseled the patient for approximately 20 minutes yesterday and again for 15-20 minutes in the presence of her fa ther and mother that she needs to stop drinking alcohol completely and permanently as her heart failu re is almost certainly primarily related to the direct and indirect affects of chronic alcoholism on her cardiac function and that with stopping repeated insults with drinking alcohol should result in i mprovement in her cardiac function over time. In fact, it has been my experience that most patient's with an alcohol-related cardiomyopathy that stopped drinking have return of their heart power to nor mal over time. I think that is especially likely in this young patient. I will get her some inpatie nt help to get her off of alcohol completely and permanently. /[id number]/MODL
[2018-12-04] MEDS ORDERED: POTASSIUM CL 10 MEQ TAB PO ONE ×2 (07:33→22:01)
[2018-12-04] MEDS ORDERED: MAGNESIUM SULF 2 GM/WATER 50 ML IV ONE (07:34)
[2018-12-04] MEDS: METOPROLOL TARTRATE 25 MG TAB PO SCH (08:01)
[2018-12-04] MEDS: ENOXAPARIN 40 MG/0.4 ML SYR SC SCH (08:01)
[2018-12-04] MEDS: SPIRONOLACTONE 25 MG TAB PO SCH (08:02)
[2018-12-04] MEDS: THIAMINE HCL 100 MG TAB PO SCH (08:03)
[2018-12-04] MEDS: LISINOPRIL 10 MG TAB PO SCH (08:03)
[2018-12-04] MEDS: PANTOPRAZOLE SODIUM 40 MG TAB PO SCH (08:03)
[2018-12-04] MEDS: CETIRIZINE 10 MG TAB PO SCH (08:03)
[2018-12-04] MEDS: FUROSEMIDE 40 MG TAB PO SCH (08:03)
[2018-12-04] MEDS: CLOTRIMAZOLE/BETAMET DIPROP 15 GM CRTUBE TP SCH ×2 (08:04→21:22)
--- NOTE | 2018-12-04 09:37 | PCMIDPN ---
Assessment/Plan: #Emphysematous cystitis secondary to E coli: much improved, completing antibiotic 12/05. No toxicity noted. Stop date to Unasyn changed in SEP. Call ID for additional questions #Severe EtOH abuse: likely predisposed to severe infection. Discussed importance of discontinuation #STD screening: HCV, syphilis negative; hospitalist service will relay HIV results when available. meds unasyn 3gm IV q6h Microbiology 11/27/18 16:08 Blood CX (2) Neg 11/24/18 21:43 Urine,Cx:100K Escherichia Coli Long-S Subjective: sleeping well c/o eye itching attributing to allergies no rash no diarrhea no pain no dysuria Objective: Vital Signs Temp Pulse Resp BP Pulse Ox 36.6 C 95 20 128/96 H 94 12/04/18 08:00 12/04/18 08:01 12/04/18 08:00 12/04/18 08:03 12/04/18 08:00 Microbiology 11/27/18 18:15 Blood Culture - Final Blood 11/27/18 16:08 Blood Culture - Final Blood Laboratory Results 12/01/18 05:17 12/04/18 05:10 12/03/18 12/04/18 12/05/18 05:59 05:59 05:59 Intake Total 1300 2200 Output Total 2300 1825 300 Balance -1000 375 -300 - Physical Exam General Appearance: alert, no apparent distress, thin, non-toxic EENT: scleral icterus, other (B conjunctival injection) Respiratory: crackles (L>R base), No accessory muscle use Cardiac/Chest: regular rate, rhythm, other (+S3) Extremities: No pedal edema Abdomen: non-tender, soft Pelvic Exam: No le Skin: normal color, warm/dry, No rash Neuro/Psych: alert, normal mood/affect, oriented x 3 - Time Spent With Patient Time Spent with Patient: greater than 35 minutes Time Spent with Patient: Greater than 35 minutes spent on this patients care, greater than 50% of time spent counseling, educating, and coordinating care regarding the above mentioned plan. ICD10 Worksheet Patient Problems: Problems Problem Status Onset Acute cystitis Acute Hypoxia Acute Pancreatitis Acute
[2018-12-04 10:37] LABS: GC AMPLIFICATION GENPROBE NEGATIVE (NEGATIVE)
--- NOTE | 2018-12-04 12:50 | HOSPPROG ---
Hospitalist Progress Note Assessment/Plan: 33yo F with history of alcohol abuse here with abdominal pain found to have UTI and pancreatitis. Course complicated by respiratory failure and new diagnosis of CHF. #Acute decompensated systolic CHF: LVEF 20%. 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 Cards following. - Cont PO lasix at current dose, lisinopril 20, kaitlin - Increase metop to 50mg BID #Acute alcohol withdrawal: Resolved - Continue librium 10mg TID (plan to stop over coming days), stopped CIWA #Acute hypoxemic respiratory failure: 2/2 pulm edema vs aspiration. Resolved. Extubated 11/29. #E coli emphysematous cystitis: ID consulted - Continue unasyn for 10 days (through 12/05) #Severe sepsis: Physiology resolved. #Possible aspiration pneumonia - Covered with unasyn #Acute metabolic encephalopathy: Resolved. #Hypotension: 2/2 sepsis, low EF. Improved today. #Acute alcoholic pancreatitis: Resolving. She is eating today. #Alcohol abuse: Multiple providers, including myself, have stressed importance of complete cessation. #Chronic cholecystis: Surgery consulted previously, no indication for tonya at present. #Colitis on CT #Ring enhancing lesion in GB neck: Unclear clinical significance. Outpt follow up #? SMV-portal vein thrombosis: No indication for anticoagulation. Consider re- eval at later date. #Hypomagnesemia: Replace as needed #Thrombocytopenia: 2/2 alcohol marrow suppression and consumptive. Resolved. #Generalized weakness: Per CM, accepted to inpatient rehab. #Tinea pedis: Lotrimin cream. VTE ppx: LMWH Diet: cardiac Code: full Dispo: remain inpatient, ok for floor. plan to go to inpatient rehab in coming day(s) Subjective: Doing well. No edema, chest pain, of dyspnea. Walked halls with walker and assistance today. Objective: Vital Signs Temp Pulse Resp BP Pulse Ox 36.8 C 109 H 20 122/88 H 97 12/04/18 12:00 12/04/18 12:00 12/04/18 12:00 12/04/18 12:00 12/04/18 12:00 Microbiology 11/27/18 18:15 Blood Culture - Final Blood 11/27/18 16:08 Blood Culture - Final Blood Laboratory Results 12/01/18 05:17 12/04/18 05:10 0512/04/18 12/05/18 05:59 05:59 05:59 Intake Total 1300 2200 Output Total 2300 1825 1300 Balance -1000 375 -1300 PT 14.3 SEC (12.0-15.0) 11/25/18 00:30 INR 1.16 (0.83-1.16) 11/25/18 00:30 - Physical Exam Constitutional: no apparent distress Eyes: PERRL, anicteric sclera, EOMI Ears, Nose, Mouth, Throat: moist mucous membranes, hearing normal, ears appear normal, no oral mucosal ulcers Cardiovascular: systolic murmur, tachycardia, No edema Respiratory: no respiratory distress, no rales or rhonchi, clear to auscultation Gastrointestinal: normoactive bowel sounds, soft, non-tender abdomen, no palpable masses Genitourinary: no bladder fullness, no bladder tenderness, no renal bruits Skin: no rashes or abrasions, no fluctuance, no induration Musculoskeletal: generalized weakness Neurologic: AAOx3 Psychiatric: interacting appropriately ICD10 Worksheet Patient Problems: Problems Problem Status Onset Acute cystitis Acute Hypoxia Acute Pancreatitis Acute
[2018-12-04] MEDS: METOPROLOL TARTRATE 50 MG TAB PO SCH (21:20)
[2018-12-05] MEDS: AMPICILLIN/SULBACTAM 3 GM in NS 100 ML IV SCH ×3 (05:16→18:20)
[2018-12-05] MEDS ORDERED: MAGNESIUM SULF 1 GM/DEXTROSE 100 ML IV ONE (07:34)
[2018-12-05] MEDS: FUROSEMIDE 40 MG TAB PO SCH (08:46)
[2018-12-05] MEDS: PANTOPRAZOLE SODIUM 40 MG TAB PO SCH (08:46)
[2018-12-05] MEDS: METOPROLOL TARTRATE 50 MG TAB PO SCH ×2 (08:46→20:57)
[2018-12-05] MEDS: CETIRIZINE 10 MG TAB PO SCH (08:46)
[2018-12-05] MEDS: THIAMINE HCL 100 MG TAB PO SCH (08:46)
[2018-12-05] MEDS: LISINOPRIL 10 MG TAB PO SCH (08:46)
[2018-12-05] MEDS: ENOXAPARIN 40 MG/0.4 ML SYR SC SCH (08:47)
[2018-12-05] MEDS: SPIRONOLACTONE 25 MG TAB PO SCH (08:47)
[2018-12-05] MEDS: CLOTRIMAZOLE/BETAMET DIPROP 15 GM CRTUBE TP SCH ×2 (08:52→20:57)
--- NOTE | 2018-12-05 13:52 | ASMTCMCOM ---
NONI Note NONI Note Notes: NONI spoke with Grace from inpatient rehab and she states she has a private pay contract for patient's family. She will also run the insurance to see if they have benefits, though they think they do not .Met with patient's family and they gave me the insurance card to copy. Patient's family also requested an ELIZABETH so they can get a copy of the patient's medical records. An ELIZABETH and the insurance card was left with the patient's nurse to return to the family.(the family was not in the room) The family would like to take the patient back to [place] for OT/PT rehab and then get her directly into an ETOH rehab program. They fear the patient will not cooperate and return to [place] with them and insist on remaining in [place]. If that happens they do want her to do her OT/PT rehab here at the hospital.The family feels the patient is in denial of her alcoholism and she thinks her problems are because she has"heart problems" vs. the medical problems being caused by her addiction to ETOH. The would appreciate the providers consistently making it clear her medical problems have been caused by her addiction to alcohol and are not separate from that. The family would also like to speak to Dr. Villanueva about when he anticipates the patient will be ready for d/c and whether or not she can fly or must travel by car. NONI following. Date Signed: 12/05/2018 01:51 PM Electronically Signed By:Tiffany Reardon LCSW
--- NOTE | 2018-12-05 14:20 | HOSPPROG ---
Hospitalist Progress Note Assessment/Plan: 33yo F with history of alcohol abuse here with abdominal pain found to have UTI and pancreatitis. Course complicated by respiratory failure and new diagnosis of CHF. #Acute decompensated systolic CHF: LVEF 20%. 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 Cards following. - Cont PO lasix 40 qd, metop 50 bid, kaitlin 25, increase lisinopril to 40 #Acute alcohol withdrawal: Resolved - Stopping librium today #Acute hypoxemic respiratory failure: 2/2 pulm edema vs aspiration. Resolved. Extubated 11/29. #E coli emphysematous cystitis: ID consulted - To complete 10 days of unasyn today #Severe sepsis: Physiology resolved. #Possible aspiration pneumonia - Covered with unasyn #Acute metabolic encephalopathy: Resolved. #Hypotension: 2/2 sepsis, low EF. Improved today. #Acute alcoholic pancreatitis: Resolving. She is eating today. #Alcohol abuse: Multiple providers, including myself, have stressed importance of complete cessation. #Chronic cholecystis: Surgery consulted previously, no indication for tonya at present. #Colitis on CT #Ring enhancing lesion in GB neck: Unclear clinical significance. Outpt follow up #? SMV-portal vein thrombosis: No indication for anticoagulation. Consider re- eval at later date. #Hypomagnesemia: Replace as needed #Thrombocytopenia: 2/2 alcohol marrow suppression and consumptive. Resolved. #Generalized weakness: Per CM, accepted to inpatient rehab. #Tinea pedis: Lotrimin cream. VTE ppx: LMWH Diet: cardiac Code: full Dispo: remain inpatient, likely to inpatient rehab tomorrow Subjective: Feeling well. No complaints. Walked stairs today. Objective: Vital Signs Temp Pulse Resp BP Pulse Ox 36.8 C 84 18 134/89 H 97 12/05/18 08:00 12/05/18 08:46 12/05/18 08:00 12/05/18 08:00 12/05/18 08:00 Laboratory Results 12/01/18 05:17 12/05/18 04:40 12/04/18 12/05/18 12/06/18 05:59 05:59 05:59 Intake Total 2200 1645 Output Total 1825 1750 Balance 375 -105 PT 14.3 SEC (12.0-15.0) 11/25/18 00:30 INR 1.16 (0.83-1.16) 11/25/18 00:30 - Physical Exam Constitutional: no apparent distress, appears nourished, not in pain Eyes: PERRL, anicteric sclera, EOMI Ears, Nose, Mouth, Throat: moist mucous membranes, hearing normal, ears appear normal, no oral mucosal ulcers Cardiovascular: regular rate and rhythym, no murmur, rub, or gallop, No edema Respiratory: no respiratory distress, no rales or rhonchi, clear to auscultation Gastrointestinal: normoactive bowel sounds, soft, non-tender abdomen, no palpable masses Genitourinary: no bladder fullness, no bladder tenderness, no renal bruits Skin: no rashes or abrasions, no induration Musculoskeletal: generalized weakness Neurologic: AAOx3 Psychiatric: interacting appropriately ICD10 Worksheet Patient Problems: Problems Problem Status Onset Acute cystitis Acute Hypoxia Acute Pancreatitis Acute
[2018-12-05] MEDS ORDERED: LISINOPRIL 40 MG TAB PO SCH (15:20)
--- NOTE | 2018-12-05 16:16 | PDCARPN ---
Cardiology Progress Note Chief Complaint: N/A Assessment/Plan: Assessment: The patient is a 33 y/o F with a history of dilated CMP with EF of 20% related to ETOH abuse. She is on good medical therapy and feeling well. She denies any CP, SOB, or lower extremity edema. She is getting ready to ambulate in the halls with PT. Plan: 1. Dilated CMP related to ETOH abuse. Continue Metoprolol, Lisinopril, and Spironolactone. 2. ETOH abuse- The need to stop ETOH for good has been discussed on many occasion by Dr. Villanueva. Likely d/c tomorrow. 12/05/18 16:15 Subjective: She denies any CP, SOB, or edema. She has no complaints today. She states she is feeling well. Objective: Vital Signs (8 Hrs) Pulse 12/05/18 08:46 84 Intake/Output (24 Hrs) 12/04/18 12/05/18 12/06/18 05:59 05:59 05:59 Intake Total 2200 1645 Output Total 1825 1750 Balance 375 -105 Intake: Oral (ml) 1900 1050 IV Intake (ml) 300 290 IV Infused (ml) 305 Ampicillin/Sulbactam 3 gm 305 In Ns 100 ml @ 200 mls/ hr IV Q6HRS [facility] Rx#: [id number] Output: Urine (ml) 1425 1750 Bedside Commode 1425 600 Toilet 1150 Urine/Stool Mix (ml) 400 Toilet 400 Other: Weight 62.8 kg 58.9 kg Number of Voids Bedside Commode 1 1 Incontinence 1 1 Toilet 1 1 Number of Stools Bedside Commode 1 Toilet 1 Result Diagrams: 12/01/18 05:17 12/05/18 04:40 - Physical Exam Constitutional: no apparent distress Cardiovascular: regular rate and rhythm, no murmurs, no rubs Respiratory: clear to auscultate bilat, no crackles, no wheezes Skin: no edema Neurologic: AAOx3 ICD10 Worksheet Patient Problems: Problems Problem Status Onset Acute cystitis Acute Hypoxia Acute Pancreatitis Acute
[2018-12-05] MEDS: LORazepam 0.5 MG TAB PO PRN ×2 (18:43→23:19)
[2018-12-06] MEDS ORDERED: POTASSIUM CL 10 MEQ TAB PO ONE ×2 (08:06→10:45)
[2018-12-06] MEDS ORDERED: MAGNESIUM SULF 1 GM/DEXTROSE 100 ML IV ONE (08:08)
[2018-12-06] MEDS: ENOXAPARIN 40 MG/0.4 ML SYR SC SCH (10:37)
[2018-12-06] MEDS: SPIRONOLACTONE 25 MG TAB PO SCH (10:38)
[2018-12-06] MEDS: FUROSEMIDE 40 MG TAB PO SCH (10:39)
[2018-12-06] MEDS: THIAMINE HCL 100 MG TAB PO SCH (10:39)
[2018-12-06] MEDS: METOPROLOL TARTRATE 50 MG TAB PO SCH (10:39)
[2018-12-06] MEDS: PANTOPRAZOLE SODIUM 40 MG TAB PO SCH (10:39)
[2018-12-06] MEDS: CETIRIZINE 10 MG TAB PO SCH (10:39)
[2018-12-06] MEDS: CLOTRIMAZOLE/BETAMET DIPROP 15 GM CRTUBE TP SCH (10:40)
[2018-12-06] MEDS: LORazepam 0.5 MG TAB PO PRN ×2 (10:43→14:50)
--- NOTE | 2018-12-06 11:31 | PDIAF ---
- Diagnosis Code Status: Full Code - Medication Management Discharge Medications: electronically signed and located in the Home Medication List. PICC Care - Routine: N/A - Orders Services needed: Physical Therapy, Occupational Therapy Diet Recommendation: cardiac -low fat low salt Diet Texture: Regular Texture Diet, Thin Liquids, Meds Whole w/Liquids Weigh Patient: weekly Eckert: Not applicable Additional Instructions: Please see a overlock elastic attacher in 7-10 days of discharge. You will need an echocardiogram in 2-3 months. Discuss the burning sensation in your feet with the doctor in [place]. - Follow Up Care Current Providers and Referrals: NONE *PRIMARY CARE P,. [Primary Care Provider] - As per Instructions
--- NOTE | 2018-12-06 11:31 | PDDCSUM ---
Discharge Summary Discharge Summary: Date of Admission: 11/24/2018 Date of Discharge: 12/06/2018 Consultants: cardiology, infectious disease, joinery patternmaker, general surgery Studies: abdominal ultrasound, HIDA scan, CTA chest, abdominal CT, TTE x2 Procedure: endotracheal intubation, PICC line placement Disposition: inpatient rehab in [place] Discharge Diagnoses: 1. Alcohol dependence and abuse 2. 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 Acute alcohol withdrawal, resolved 4. Acute hypoxemic respiratory failure, resolved 5. Shock (mixed distributory and cardiogenic), resolved 6. E coli emphysematous cystitis 7. Acute alcoholic pancreatitis, resolved 8. Acute metabolic encephalopathy, resolved 9. Possible aspiration pneumonia 10. Deconditioning 11. Neuropathic pain involving bilateral feet 12. Tinea pedis 13. Abnormal imaging findings: chronic cholecystitis, ring enhancing gallbladder lesions Brief Hospital Course: 33yo F with history of alcohol abuse presented 11/24/2018 with abdominal pain. Her work up revealed emphysematous cystitis and pancreatitis. She was fluid resuscitated and started on antibiotics. She decompensated and became hypotensive and went into respiratory failure requiring mechanical ventilation. Work up of her respiratory failure included a TTE which showed an LVEF of 20% with global hypokinesis. Cardiology was consulted. She was briefly on vasopressors including dobutamine. She was diuresed and successfully extubated. She was started on guideline directed therapies for her heart failure including a beta jasson, katlyn inhibitor, and aldosterone receptor antagonist, which she was tolerating well. Her cardiomyopathy is felt to be alcohol induced and a coronary angiogram was not pursued. She was euvolemic and breathing well on room air at time of discharge. She was also treated for alcohol withdrawal and completed a taper of benzodiazepines. She is tolerating PO well. Infectious disease was involved in her care. She completed a 10 day course of antibiotics for her E coli UTI as well as aspiration pneumonia. On day of discharge, she noted some neuropathic pain in her feet. This is likely alcohol related. I encouraged her to discuss with her providers in [place]. Medications: Please refer to EMR or list provided at discharge for complete list. Follow Up Plan: 1. Establish with cardiology in [place] in 7-10 days. Will need echocardiogram in 2-3 months. 2. Monitor magnesium and potassium levels intermittently. 3. Continue to work on alcohol cessation. 4. Management of neuropathic pain. 5. Recommend seeing a general surgeon in the next 1-2 months to discuss management of chronic cholecystitis. Physical Exam: Vitals reviewed, normotensive. Alert and oriented, no focal deficits, rrr, lungs clear, abdomen soft and nt, no leg edema, no JVD.
--- NOTE | 2018-12-06 11:57 | ASMTLACE ---
CAT Length of stay for Answers: 7-13 days current admission Acuity / Level of Answers: Yes Care: Did the patient have an inpatient admission? # of Emergency department Answers: 1-2 visits in the last 6 months Social determinants Answers: History of substance abuse (ETOH, street drugs, prescription drugs, etc.) Score: 12 Date Signed: 12/06/2018 11:56 AM Electronically Signed By:Alma Mayberry
--- NOTE | 2018-12-06 12:00 | PCMIDPN ---
Assessment/Plan: Assessment: 33-year-old woman with acute pancreatitis complicated by acute systolic heart failure, emphysematous cystitis with E coli, acute respiratory failure, transaminitis, and hyperbilirubinemia. She is much improved and planned for discharge to physical rehab today. Informed her of negative testing for HIV and HCV. 1. Emphysematous cystitis with E coli; Resolved 2. Acute respiratory failure, likely component of acute heart failure with possible aspiration pneumonitis; Resolved 3. Acute systolic heart failure, likely consequence of alcohol use 4. Acute, severe pancreatitis, likely alcohol induced; Resolved 5. Transaminase elevation likely related to alcohol use; Improved 6. Hyperbilirubinemia; Improved 7. Alcohol abuse, chronic Plan: 1. Informed patient of her negative HIV testing and negative HCV testing Mikal Harris MD Infectious Diseases 12/06/18 12:01 Objective: Vital Signs Temp Pulse Resp BP Pulse Ox 37.1 C 81 16 122/80 H 93 12/05/18 23:16 12/05/18 23:16 12/05/18 23:16 12/05/18 23:16 12/05/18 23:16 Laboratory Results 12/01/18 05:17 12/06/18 05:30 12/05/18 12/06/18 12/07/18 05:59 05:59 05:59 Intake Total 1645 350 Output Total 1750 Balance -105 350 - Physical Exam General Appearance: no apparent distress, non-toxic EENT: No scleral icterus Respiratory: No respiratory distress, No accessory muscle use Neck: full range of motion, supple Neuro/Psych: alert, oriented x 3, depressed affect, No confused ICD10 Worksheet Patient Problems: Problems Problem Status Onset Acute cystitis Acute Hypoxia Acute Pancreatitis Acute
--- NOTE | 2018-12-06 12:05 | ASDISCHSUM ---
Discharge Information Plan Status:Inpatient Rehab Medically Cleared to Leave:12/06/2018 Discharge Date:12/06/2018 CM D/C Disposition:Other Rehab, Not [facility] ADT D/C Disposition:Other Rehab, Not [facility] Projected Discharge Date:12/06/2018 11:00 AM Transportation at D/C:Family Discharge Delay Reason: Follow-Up Date:12/06/2018 11:00 AM Discharge Slot: Final Diagnosis: Placement Information Referral Type:[facility] Referral ID:[id number] Provider Name: Address 1: Phone Number: Address 2: Fax Number: City: Selection Factors: State: Patient Contact Information Contact Name:PARAS Relationship:Father Address:[address] Work Phone: City:[place] Alternate Phone: State/Zip Code:[place] [address] Email: Financial Information Financial Class:Self-Pay Primary Plan Desc:SELF PAY Primary Plan Number: Secondary Plan Desc: Secondary Plan Number: Assessment Information LACE LACE Length of stay for Answers: 7-13 days current admission Acuity / Level of Answers: Yes Care: Did the patient have an inpatient admission? # of Emergency department Answers: 1-2 visits in the last 6 months Social determinants Answers: History of substance abuse (ETOH, street drugs, prescription drugs, etc.) Score: 12 Date Signed: 12/06/2018 11:56 AM Electronically Signed By:Alma Mayberry CAGE Questionnaire CAGE Do you feel you ought to Answers: Yes cut down on your drinking or drug use? Do people annoy you by Answers: No criticizing your drinking or drug use? Do you feel guilty about Answers: Yes your drinking or drug use? Do you drink or use drugs Answers: No first thing in the morning (Eye Nursing Director)? Date Signed: 11/25/2018 03:20 PM Electronically Signed By:Tiesha Morrow RN [facility] NONI Progress Note CM Note CM Note Notes: Patient plan of care reviewed in am rounds. Met with patient this pm. Cage completed. Patient lives in [place] and was brought here by here father for treatment She is actively withdrawing from alcohol and reports she has been given resources on previous occasions. She is planning to relocate to [place] this month and CM has provided outpatient resources there on her discharge sheet. Plan: Likely independent with out patient support. Date Signed: 11/25/2018 03:55 PM Electronically Signed By:Tiesha Morrow RN [facility] NONI Progress Note CM Note NONI Note Notes: Patient plan of care reviewed in am rounds, she continues to suffer withdrawal symptoms. Surgery consulted to see r/t chronic appearing gallbladder. Patient still plans to move to [facility] and has contacts on her discharge sheet for outpatient alcohol treatment. CM to follow. Plan: Dc independently when medically stable for discharge to home. Date Signed: 11/26/2018 04:11 PM Electronically Signed By:Tiesha Morrow RN [facility] CM Progress Note CM Note CM Note Notes: Met with patient's parents, Kamlesh and Jennifer and her brother Abhinav and his Rylee yesterday. Proxy was established as patient has been intubated. Patient's father, Kamlesh will serve as proxy until patient is able to speak for herself. The family members were all in agreement on this and state the patient does not have any close friends to consult. The family had questions about sending records to their physician in [place], [place]. A ELIZABETH was obtained and medical records was consulted. Patient's records have been faxed to Dr. Schreiber. There was discussion of some of the possibilities for penitentiary care for the patient. A family meeting was scheduled for tomorrow at 12:30. Patient's parents plan on staying here in [place] for the duration of the patient's illness and hospitlaization. They would like to take her back to [place] for rehab there when she is ready for discharge. They did say the patient is headstrong and has isolated herself due to her addiction issues so it has not been determined yet what the patient will cooperate with when she is medically stable. CM will follow. Date Signed: 11/28/2018 03:53 PM Electronically Signed By:Tiffany Reardon LCSW [facility] Progress Note CM Note CM Note Notes: A family meeting was held today for the family of Jacquelin. Please see Gissell Taylor's, () notes. CM confirmed the medical records are being faxed to Dr. Prashant Schreiber today. In addition, the family's request for a neurology consult was addressed by the 's with the family. Patient is currently in critical condition and her cardiac issues are primary presently. The family stated they are still planning to try and get the patient back to [place] when she is medically ready for discharge. They do understand she may need some inpatient physical rehab prior to going for A and D rehab. The family was invited to request a family meeting when they need one. They understand the patient may have a lengthy hospitalization. CM will follow. Date Signed: 11/28/2018 04:05 PM Electronically Signed By:Tiffany Reardon LCSW [facility] NONI Progress Note CM Note NONI Note Notes: NONI spoke with pt, RN and pt's mother in the room. Pt still not able to speak d/t self-extubation and vocal trauma. NEEDLE PUNCH OPERATOR is recommending inpatient rehab and PT/OT orders were placed today. Hospitalist notified of need for IpR eval order. Pt's mother and RN feel inpatient rehab is appropriate. Pt out of bed for the first time today and not alert enough to digest information on addiction treatment yet. CM to follow. D/C Plan: Ip Rehab pending eval Date Signed: 12/01/2018 02:18 PM Electronically Signed By:Lulu Ziegler [facility] NON[facility] Progress Note CM Note NONI Note Notes: NONI spoke with Grace from Inpatient Rehab who is waiting on updated insurance information for pt and to see if they have beds available. NONI contacted financial counseling to obtain updates on insurance status. Christina from financial counseling said she would reach out to pt's dad who will bring information in. NONI made multiple attempts to speak with pt's family who have not yet answered/returned phone call. NONI notified RN that we are looking for updated insurance information. CM to continue to work with Inpt rehab to see if she can be discharged there and if they have bed openings or possibly referral to another inpt rehab facility. Plan: inpt rehab pending acceptance/bed availability. Date Signed: 12/03/2018 04:05 PM Electronically Signed By:ERWIN Mac [facility] NONI Progress Note NONI Note NONI Note Notes: NONI spoke with Grace from inpatient rehab and she states she has a private pay contract for patient's family. She will also run the insurance to see if they have benefits, though they think they do not .Met with patient's family and they gave me the insurance card to copy. Patient's family also requested an ELIZABETH so they can get a copy of the patient's medical records. An ELIZABETH and the insurance card was left with the patient's nurse to return to the family.(the family was not in the room) The family would like to take the patient back to [place] for OT/PT rehab and then get her directly into an ETOH rehab program. They fear the patient will not cooperate and return to [place] with them and insist on remaining in [place]. If that happens they do want her to do her OT/PT rehab here at the hospital.The family feels the patient is in denial of her alcoholism and she thinks her problems are because she has"heart problems" vs. the medical problems being caused by her addiction to ETOH. The would appreciate the providers consistently making it clear her medical problems have been caused by her addiction to alcohol and are not separate from that. The family would also like to speak to Dr. Villanueva about when he anticipates the patient will be ready for d/c and whether or not she can fly or must travel by car. NONI following. Date Signed: 12/05/2018 01:51 PM Electronically Signed By:Tiffany Reardon LCSW Case Management Discharge Plan Note Case Management Discharge Discharge Order Complete? Answers: Yes Patient to Obtain Answers: Other Notes: [facility] Reha b Medications Transportation Arranged Answers: Family/Friends Family Notified Answers: Yes Notes: Father is in pt's room Discharge Comments Notes: CM met with pt and father. Pt has decided to discharge to [facility]. NONI faxed all discharge paperwork to [facility]. Pt is being privately flown to [place]. Pt is transporting with her family to the airport in [facility]. NONI gave RN the report number. Intervention Information
[2018-12-06 12:46] VITALS: BP 124/84
--- NOTE | 2018-12-09 13:31 | CPEKG ---
Test Reason : OPEN Blood Pressure : / mmHG Vent. Rate : 097 BPM Atrial Rate : 097 BPM P-R Int : 175 ms QRS Dur : 092 ms QT Int : 421 ms P-R-T Axes : 071 107 -88 degrees QTc Int : 535 ms Sinus rhythm Borderline right axis deviation Nonspecific T abnormalities, diffuse leads Prolonged QT interval Confirmed by Cortez Lee ([id number]) on 12/09/2018 1:30:46 PM Referred By: Sanjiv Antonio Confirmed By:Cortez Lee
--- NOTE | 2018-12-11 15:57 | PQFORM ---
PHYSICIAN QUERY FORM Needs Your Response This query form is being sent to you to assure this patient record is coded properly. Please respond to the question below: LINEN CONTROLLER QUESTION: Dear Dr. Zepeda, Severe sepsis was documented within Dr. Akbar 11/27 consultation, Dr. Elliott consultation, Infectious Disease progress notes dated 11/28-12/03, Supervisor Baking progress notes dated 11/28-12/03, and the Hospitalist progress notes dated 11/29-. WBC on 11/24=3.76, 5=3.45. Heart rate on 11/24=120. Blood Pressure on 11/24= 121/81. Patient was noted to have hypotension with fever and was later diagnosed with cystitis and aspiration pneumonia. In the Discharge Summary it is noted patient had mixed distributary and cardiogenic shock. Based on the clinical indicators and our professional judgment should the "Severe Sepsis with Shock" be included in the Discharge summary? Yes No ___x__Other more appropriate diagnosis (Please specify)____I believe this patient had shock secondary to sepsis and poor cardiac output. This would be a combination of septic and cardiogenic shock. Clinically unable to determine Thank you, Lulu Feng, DOFFER HIM/Coding Dept. INSTRUCTIONS FOR RESPONSE: Answer question by clicking on the "Edit Document" button. Move cursor to area below the stars. When complete, hit "Save." Click on the "Sign" button, then click "Sign" again. Type in your PIN and hit "Enter." MTDD
== END 2018-12-06 15:25 | DRG 871 ==
LOC: OBSVTOIN 22:27 → F1N 23:10 → F2N 11-27 01:00 → F3E 12-05 10:45
PROVIDERS: ADMIT Student in an Organized Health Care Education/Training Program; ATTEND Student in an Organized Health Care Education/Training Program
DX: A41.9 Sepsis, unspecified organism (principal); K85.20 Alcohol induced acute pancreatitis without necrosis or infection; R65.21 Severe sepsis with septic shock; R57.0 Cardiogenic shock; J96.01 Acute respiratory failure with hypoxia; G93.41 Metabolic encephalopathy; J69.0 Pneumonitis due to inhalation of food and vomit; I50.21 Acute systolic (congestive) heart failure; F10.239 Alcohol dependence with withdrawal, unspecified; I42.6 Alcoholic cardiomyopathy; N30.80 Other cystitis without hematuria; B96.20 Unspecified Escherichia coli [E. coli] as the cause of diseases classified elsewhere; B35.3 Tinea pedis; K81.1 Chronic cholecystitis; K87 Disorders of gallbladder, biliary tract and pancreas in diseases classified elsewhere; E86.9 Volume depletion, unspecified; Z72.0 Tobacco use; G57.93 Unspecified mononeuropathy of bilateral lower limbs
CPT/HCPCS: 82607-90; 92507-GN; 92523-GN; 92526-GN; 92610-GN; 96365; 97110-GP; 97112-GP; 97116-GP; 97162-GP; 97166-GO; 97530-GO; 97535-GO; A9537; C1751; G0472; J0295; J0330; J0696; J1250; J1650; J1885; J1940; J2060; J2270; J2405; J2550; J2704; J2997; J3010; J3411; J3475; J3480; P9041; P9047; Q9967